=== PATIENT | female | born 1985 | race Caucasian/White ===

== ENCOUNTER → 2018-05-19 11:44 | Outpatient (CLI) | payer MEDICAID, SELFPAY | DX: M79.672 Pain in left foot (principal) | CPT/HCPCS: 73630 ==

== ENCOUNTER → 2019-04-11 17:15 | Outpatient (CLI) | payer MEDICAID, SELFPAY ==
[2019-04-11 13:48] VITALS: BMI 39.3
== END ==
PROVIDERS: Referring Provider Obstetrics & Gynecology; Visit Provider Obstetrics & Gynecology
DX: N89.8 Other specified noninflammatory disorders of vagina (principal)
CPT/HCPCS: 87070; 87205

== ENCOUNTER → 2019-07-11 18:44 | Outpatient (CLI) | payer MEDICAID, SELFPAY ==
[2019-07-11 10:23] VITALS: BMI 39.3
[2019-07-11 15:39] LABS: Chlamydia Trachomatis by PCR Negative (Negative); Neisserai gonorrhoeae by PCR Negative (Negative); Probe Check PASS; Sample Adequacy Control PASS; Specimen Processing Control PASS
--- NOTE | 2019-07-11 18:48 | US_ITS ---
STUDY: ULTRASOUND OF THE FEMALE PELVIS - COMPLETE REASON FOR EXAM: Female, 34 years old. IUD check. LMP: June 25, 2019. TECHNIQUE: Transabdominal and Transvaginal TECHNICAL QUALITY: Adequate. COMPARISON: None. FINDINGS: The uterus is anteverted and is in a midline position. The uterus measures 7.7 x 6.1 x 4.7 cm. Normal uterine cervix. The endometrium measures 13 mm in thickness, and is hyperechoic. There is no demonstrated endometrial mass and trace endometrial fluid.. There is no demonstrated myometrial mass. I.U.D. - The patient does not have an I.U.D. no IUD is seen within the uterus or cervix. The right ovary is visualized. The right ovary measures 2.6 x 1.9 x 1.5 cm. There are multiple follicles of the right ovary without a dominant cyst. There is no visualized right adnexal mass or complex lesion. There is normal arterial and normal venous vascularity. The left ovary is visualized. The left ovary measures 3.0 x 2.0 x 1.3 cm. There are multiple follicles of the left ovary without a dominant cyst. There is no visualized left adnexal mass or complex lesion. There is normal arterial and normal venous vascularity. There is no fluid in the cul-de-sac. The urinary bladder is poorly distended. Polycystic ovary disease: No. US/Transvaginal Non- IMPRESSION: 1. No visualized IUD within the endometrial or cervical canal. 2. Normal-appearing uterus. There is mild prominence to the endometrium with questionable minimal fluid in the endometrial canal. 3. Normal ovaries. Electronically Signed: Boom Mccarthy DO at 20:12 EDT Tel [phone], Service support ,
== END ==
PROVIDERS: Referring Provider Obstetrics & Gynecology; Visit Provider Obstetrics & Gynecology
DX: Z11.3 Encounter for screening for infections with a predominantly sexual mode of transmission (principal); Z30.431 Encounter for routine checking of intrauterine contraceptive device
CPT/HCPCS: 76830; 87070; 87205; 87491; 87591; 93976

== ENCOUNTER → 2019-10-03 16:23 | Outpatient (CLI) | payer MEDICAID, SELFPAY ==
[2019-10-03 11:26] VITALS: BMI 39.3
[2019-10-06 16:10] LABS: HPV APTIMA, High Risk Positive (Negative)
== END ==
PROVIDERS: Referring Provider Obstetrics & Gynecology; Visit Provider Obstetrics & Gynecology
DX: D06.9 Carcinoma in situ of cervix, unspecified (principal)
CPT/HCPCS: 87624; 88175; G0145

== ENCOUNTER → 2020-07-04 | Outpatient (CLI) | payer MEDICAID, SELFPAY ==
[2020-07-04 13:03] VITALS: BMI 34.0
[2020-07-07 03:07] LABS: Chlamydia By Nucleic Acid AMP Negative (Negative)
[2020-07-07 10:04] LABS: Gonococcus By Nucleic Acid AMP Negative (Negative)
== END | disposition home or self-care (01) ==
LOC: LABSPEC 16:47
PROVIDERS: Visit Provider Obstetrics & Gynecology
DX: Z11.3 Encounter for screening for infections with a predominantly sexual mode of transmission (principal); N89.8 Other specified noninflammatory disorders of vagina
CPT/HCPCS: 87070; 87205; 87491; 87591

== ENCOUNTER → 2020-10-30 | Outpatient (CLI) | payer MEDICAID, SELFPAY ==
[2020-10-30 08:12] VITALS: BMI 31.3
[2020-11-01 09:08] LABS: Chlamydia By Nucleic Acid AMP Negative (Negative)
[2020-11-01 10:54] LABS: Gonococcus By Nucleic Acid AMP Negative (Negative)
== END | disposition home or self-care (01) ==
LOC: LABSPEC 12:16
PROVIDERS: Referring Provider Obstetrics & Gynecology; Visit Provider Obstetrics & Gynecology
DX: Z11.3 Encounter for screening for infections with a predominantly sexual mode of transmission (principal)
CPT/HCPCS: 87070; 87205; 87491; 87591

== ENCOUNTER → 2020-11-27 | Outpatient (CLI) | payer MEDICAID, SELFPAY ==
[2020-11-27 14:20] VITALS: BMI 31.8
[2020-12-01 03:07] LABS: Chlamydia By Nucleic Acid AMP Negative (Negative)
[2020-12-01 08:48] LABS: Gonococcus By Nucleic Acid AMP Negative (Negative)
== END | disposition home or self-care (01) ==
PROVIDERS: Referring Provider Obstetrics & Gynecology; Visit Provider Obstetrics & Gynecology
DX: N76.0 Acute vaginitis (principal); Z11.3 Encounter for screening for infections with a predominantly sexual mode of transmission
CPT/HCPCS: 87070; 87205; 87491; 87591

== ENCOUNTER → 2021-03-19 14:58 | Outpatient (CLI) | payer MEDICAID, SELFPAY ==
[2021-03-19 14:24] VITALS: BMI 31.8
[2021-03-19 16:12] LABS: HIV - WCH Non-Reactive (Nonreactive); Syphilis Antibodies Non-reactive
[2021-03-22 03:07] LABS: Chlamydia By Nucleic Acid AMP Negative (Negative)
[2021-03-22 03:07] LABS: HCV Quant. RNA PCR HCV Not Detected IU/mL (.); HEPATITIS B SURFACE AG Negative (Negative); Hepatitis A IgM Antibody Negative (Negative); Hepatitis B Core AB IgM Negative (Negative)
[2021-03-22 11:01] LABS: Gonococcus By Nucleic Acid AMP Negative (Negative)
[2021-03-22 11:02] LABS: Hep C Antibodies <0.1 s/co ratio (0.0-0.9)
== END ==
PROVIDERS: Referring Provider Obstetrics & Gynecology; Visit Provider Obstetrics & Gynecology
DX: Z11.3 Encounter for screening for infections with a predominantly sexual mode of transmission (principal)
CPT/HCPCS: 36415; 80074; 86703; 86780; 87491; 87522; 87591

== ENCOUNTER → 2021-07-03 15:08 | Outpatient (CLI) | payer MEDICAID, SELFPAY ==
[2021-07-03 16:43] LABS: Absolute Lymphocyte Count 2.06 X10^3/uL (0.83-4.51); Absolute Neutrophil Count 4.8 X10^3/uL (2.0-7.7); Basophil# 0.05 X10^3/uL; Basophil% 0.7 % (0-1); Eosinophil# 0.22 X10^3/uL; Eosinophils% 2.9 % (0-5); Hematocrit 43.1 % (37-47); Hemoglobin 14.6 g/dL (12.0-15.0); Lymphocyte # 2.06 X10^3/ul (0.83-4.51); Mean Corp Hgb Conc 33.9 g/dL (32-36); Mean Corpuscular Hgb 32.4 pg (27.0-32.0); Mean Corpuscular Volume 95.6 fL (81-99); Mean Platelet Vol. 10.9 fl (6.2-12.0); Monocyte# 0.44 X10^3/uL; Monocyte% 5.8 % (0-10); NRBC Flagged by Analyzer 0 % (0-5); Neutrophil # 4.84 X10^3/uL (2.7-7.7); Neutrophil % 63.2 % (47-70); Platelet Count 263 K/mm3 (150-450); RBC Distribution Width CV 12.1 % (11.6-14.6); RBC Distribution Width SD 42.5 fl (35.1-43.9); Red Blood Count 4.51 M/mm3 (4.2-5.4); White Blood Count 7.6 K/mm3 (4.4-11.0)
[2021-07-03 17:31] LABS: AST(SGOT) 12 U/L (15-37); Alanine Aminotransfer ALT/SGPT 19 U/L (13-56); Albumin, Serum 3.6 g/dL (3.2-5.0); Alkaline Phosphatase 55 U/L (45-117); Anion Gap 8 (5-15); BUN 11 mg/dL (7-18); BUN/Creat Ratio 16.2 RATIO (10-20); Calcium,Total 8.9 mg/dL (8.5-10.1); Chloride 108 mmol/L (98-107); Creatinine, Serum 0.68 mg/dL (0.55-1.02); EST Glomerular Filtration Rate 105 mL/min (>60); Est Glom Filt Rate - Afr Amer 127 mL/min (>60); Globulin 3.7 g/dL (2.2-4.2); Glucose 99 mg/dL (74-106); Lipase 70 U/L (73-393); Potassium 3.9 mmol/L (3.5-5.1); Protein, Total 7.3 g/dL (6.4-8.2); Sodium Level 141 mmol/L (136-145); T4 Total, Thyroxin 7.2 ug/dL (4.8-13.9); Thyroid Stim Hormone (TSH) 0.95 uIU/mL (0.358-3.74)
[2021-07-06 06:08] LABS: Endomysial Antibody IgA Negative (Negative); Immunoglobulin A 193 mg/dL (87-352)
[2021-07-06 08:05] LABS: Thyroid Peroxidase AB < 8 IU/mL (0-34); t-Transglutaminase IgA <2 U/mL (0-3)
== END ==
DX: R11.2 Nausea with vomiting, unspecified (principal)
CPT/HCPCS: 36415; 80053; 82784; 83516; 83690; 84436; 84443; 85025; 86255; 86376; 86677

== ENCOUNTER → 2021-07-05 07:41 | Outpatient (CLI) | payer MEDICAID, SELFPAY ==
--- NOTE | 2021-07-05 07:45 | US_ITS ---
STUDY: ABDOMINAL ULTRASOUND REASON FOR EXAM: Female, 36 years old. General ABD PAIN x 2 years TECHNIQUE: Transabdominal ultrasound was performed with real-time and static patrick scale imaging. TECHNICAL QUALITY: Adequate. COMPARISON: None. FINDINGS: Liver: The liver measures 17 cm. There is normal echogenicity of the liver. The bile ducts are within normal limits. There is hepatic color flow. The direction of portal flow is hepatopetal. There is no demonstrated mass lesion. Gallbladder: Normal distended gallbladder. The gallbladder wall measures 2.1 mm. There is a negative sonographic Cutler''s sign. There is no pericholecystic fluid. There are no gallstones. Common Bile Duct (C.B.D.): The common bile duct measures 4.3 mm. Pancreas: Normal size of the head, body and tail of the pancreas. There is normal echogenicity of the pancreas. There is no demonstrated pancreatic mass or cyst. Spleen: Normal size of the spleen. The spleen measures 11.7 cm x 4.8 cm x 4.1 cm. Right Kidney: Normal size of the right kidney. The right kidney measures 12.6 cm x 5.4 cm x 4.9 cm. Normal renal cortex. The right cortex measures 1.3 cm. There is no demonstrated renal mass or cyst. There is no right hydronephrosis. Left Kidney: Normal size of the left kidney. The left kidney measures 12.7 cm x 5.5 cm x 5.7 cm. Normal renal cortex. The left cortex measures 1.5 cm. There is no demonstrated renal mass or cyst. There is no left hydronephrosis. Aorta: Unremarkable. I.V.C.: The IVC is patent. There is no ascites. US/Abdomen Complete IMPRESSION: Normal abdominal ultrasound examination. Electronically Signed: Blanco Brown MD at 15:10 EDT , Service support ,
--- NOTE | 2021-07-05 07:46 | US_ITS ---
STUDY: ULTRASOUND OF THE FEMALE PELVIS - COMPLETE REASON FOR EXAM: Female, 36 years old. ABD PAIN LMP: 06/30/2021 TECHNIQUE: Transabdominal TECHNICAL QUALITY: Adequate. COMPARISON: 07/11/2019 FINDINGS: The uterus is anteverted and is in a midline position. The uterus measures 8.8 x 6.1 x 4.3 cm. Normal uterine cervix. The endometrium measures 3 mm in thickness, and is hyperechoic. There is no demonstrated endometrial mass. There is no demonstrated myometrial mass. I.U.D. - The patient does have an I.U.D. The right ovary is visualized. The right ovary measures 2.3 x 2.5 x 1.4 cm. There is no right ovarian cyst or ovarian mass. There is no visualized right adnexal mass or complex lesion. There is normal arterial and normal venous vascularity. The left ovary is visualized. The left ovary measures 3.6 x 2.5 x 1.4 cm. There is no left ovarian cyst or ovarian mass. There is no visualized left adnexal mass or complex lesion. There is normal arterial and normal venous vascularity. There is no fluid in the cul-de-sac. The pre void volume of the bladder was 329 ml. The post void volume of the bladder was ml. Polycystic ovary disease: No. US/Pelvic (Non ) IMPRESSION: Normal female pelvis. Electronically Signed: Peyman Castillo MD at 10:58 EDT Tel , Service support ,
[2021-07-08 22:07] LABS: Chlamydia By Nucleic Acid AMP Negative (Negative)
[2021-07-08 22:27] LABS: Gonococcus By Nucleic Acid AMP Negative (Negative)
== END ==
PROVIDERS: Obstetrics & Gynecology
DX: R10.84 Generalized abdominal pain (principal); R30.0 Dysuria; N89.8 Other specified noninflammatory disorders of vagina
CPT/HCPCS: 76700; 76856; 87070; 87077; 87086; 87088; 87186; 87205; 87491; 87591; 93976

== ENCOUNTER 2021-10-17 11:01 | Outpatient (CLI) | payer MEDICAID, SELFPAY ==
[2021-10-17 12:22] LABS: Absolute Lymphocyte Count 2.19 X10^3/uL (0.83-4.51); Absolute Neutrophil Count 4.2 X10^3/uL (2.0-7.7); Basophil# 0.05 X10^3/uL; Basophil% 0.7 % (0-1); Eosinophil# 0.19 X10^3/uL; Eosinophils% 2.7 % (0-5); Hematocrit 43.8 % (37-47); Hemoglobin 15.2 g/dL (12.0-15.0); Lymphocyte # 2.19 X10^3/ul (0.83-4.51); Mean Corp Hgb Conc 34.7 g/dL (32-36); Mean Corpuscular Volume 92.2 fL (81-99); Mean Platelet Vol. 10.8 fl (6.2-12.0); Monocyte% 5.7 % (0-10); NRBC Flagged by Analyzer 0 % (0-5); Neutrophil # 4.21 X10^3/uL (2.7-7.7); Neutrophil % 59.6 % (47-70); Platelet Count 244 K/mm3 (150-450); Red Blood Count 4.75 M/mm3 (4.2-5.4); White Blood Count 7.1 K/mm3 (4.4-11.0)
[2021-10-17 13:33] LABS: AST(SGOT) 9 U/L (15-37); Alanine Aminotransfer ALT/SGPT 18 U/L (13-56); Albumin, Serum 3.8 g/dL (3.2-5.0); Alkaline Phosphatase 58 U/L (45-117); Anion Gap 6 (5-15); BUN 11 mg/dL (7-18); BUN/Creat Ratio 17.4 RATIO (10-20); Calcium,Total 8.8 mg/dL (8.5-10.1); Chloride 109 mmol/L (98-107); Cholesterol 155 mg/dL (200); Creatinine, Serum 0.63 mg/dL (0.55-1.02); EST Glomerular Filtration Rate 113 mL/min (>60); Est Glom Filt Rate - Afr Amer 137 mL/min (>60); Globulin 3.8 g/dL (2.2-4.2); Glucose 98 mg/dL (74-106); High Density Lipoprotein 55 mg/dL; Potassium 3.8 mmol/L (3.5-5.1); Protein, Total 7.6 g/dL (6.4-8.2); Sodium Level 138 mmol/L (136-145); Thyroid Stim Hormone (TSH) 1.19 uIU/mL (0.358-3.74); Triglycerides 83 mg/dL; Very Low Density Lipoprotein 17 mg/dL (5-40)
[2021-10-17 14:09] LABS: Hemoglobin A1c 4.8 % (3.8-5.6)
[2021-10-18 17:52] LABS: H. Pylori Antibody (IgG) 0.49 (0.00-0.79)
== END 2021-10-17 23:59 | disposition short-term general hospital (02) ==
PROVIDERS: Visit Provider Nurse Practitioner Adult Health
DX: Z13.1 Encounter for screening for diabetes mellitus (principal); F31.81 Bipolar II disorder; K21.9 Gastro-esophageal reflux disease without esophagitis
CPT/HCPCS: 36415; 80053; 80061; 83036; 84443; 85025; 86677

== ENCOUNTER 2021-10-21 12:21 | Outpatient (CLI) | payer MEDICAID, SELFPAY ==
[2021-10-23 00:06] LABS: Chlamydia By Nucleic Acid AMP Negative (Negative)
[2021-10-23 13:30] LABS: Gonococcus By Nucleic Acid AMP Negative (Negative)
== END 2021-10-21 23:59 | disposition short-term general hospital (02) ==
LOC: LABSPEC 12:22
PROVIDERS: Referring Provider Nurse Practitioner Women's Health; Visit Provider Nurse Practitioner Women's Health
DX: N89.8 Other specified noninflammatory disorders of vagina (principal)
CPT/HCPCS: 87070; 87086; 87088; 87205; 87491; 87591

== ENCOUNTER → 2022-03-07 | Outpatient (CLI) | payer MEDICAID, SELFPAY | END | disposition home or self-care (01) | LOC: LABSPEC 03-10 08:14 | PROVIDERS: Visit Provider Obstetrics & Gynecology | DX: Z12.4 Encounter for screening for malignant neoplasm of cervix (principal) | CPT/HCPCS: 87624; 88175; G0145 ==

== ENCOUNTER → 2022-04-10 | Outpatient (CLI) | payer MEDICAID, SELFPAY ==
--- NOTE | 2022-04-10 | IMM_PTH ---
PATIENT: FANTA HAM LOC: [facility] U#:[id number] AGE/SX: 36/F ROOM: RE04/10/[address]: Dr. Marxia Levine MD : 1985 BED: DIS: 04/10/2022 SPEC #: [id number] RECD: 04/14/22 12:25 STATUS: BANDAR REQ #: [id number] ANDRES: 04/10/22 00:[address]: Marixa Levine DEPT: IMMUNOHISTOCHEMISTRY RECD BY: Yuki Thomas ENTERED: 04/14/22 12:26 SP TYPE: IMMUNO OTHR DR: [facility] Tissues: Uterine cervix, NOS Procedures: p16 (initial) KI-67 (add) PHYSICIAN & INSTITUTION [place] [id number] SPECIMEN INFORMATION: Tissue Source: Cervix, 11 o?clock Clinical Info: LGSIL Specimen Number: [id number] CPT code: 69305, 51299 METHODOLOGY: Deparaffinized sections of prefer/formalin-fixed tissue or PAP/DQ stained slides are incubated with monoclonal/polyclonal antibodies/oligonucleotide probes. Localization is made via biotin free immunoperoxidase method. Appropriate controls are performed and reacted as expected. Results on target cell population are indicated in the following table: RESULTS: ANTIBODY / CLONE RESULT P16 (E6H4) negative Ki-67 (30-9) positive, very low These tests were developed and their performance characteristics determined by [facility]. They may not have been cleared or approved by the [place]. Food and Drug Administration. The FDA has determined that such clearance or approval is not necessary. The above immunohistochemical/dualISH markers are ordered and reviewed by the Pathologist. INTERPRETATION: Cervix, 11 o?clock, biopsy: Negative for dysplasia. HAILEE:addi 04/15/2022
--- NOTE | 2022-04-10 | CER_PTH ---
PATIENT: FANTA AHM LOC: [facility] U#:[id number] AGE/SX: 36/F ROOM: RE04/10/[address]: Dr. Marixa Levine MD : 1985 BED: DIS: 04/10/2022 SPEC #: [id number] RECD: 04/10/22 15:26 STATUS: BANDAR JAMARI #: [id number] ANDRES: 04/10/22 00:[address]: Marixa Levine DEPT: SURGICAL PATHOLOGY RECD BY: Lizzette Lujan ENTERED: 04/11/22 08:05 SP TYPE: CERV OTHR DR: [facility] Tissues: Uterine cervix, NOS Procedures: Surgery Specimen Level IV HEADER OPERATION: Colposcopy PRE-OP DIAGNOSIS: LGSIL TISSUE SUBMITTED: Cervix 11 o?clock MICROSCOPIC DIAGNOSIS Cervix, 11 o?clock, biopsy: A fragment of ectocervical mucosa, negative for dysplasia. Focal hyperkeratosis, parakeratosis and mild chronic inflammation. See comment. HAILEE:addi 04/14/2022 COMMENT Immunohistochemistry ([id number]) for surrogate HPV marker (p16) supports the above diagnosis. Clinical correlation and appropriate follow-up are necessary. MICROSCOPIC DESCRIPTION Slides are reviewed. GROSS DESCRIPTION Received in fixative is one container labeled with the patient's name and designated 11 o'clock. The specimen consists of one irregular fragment of light hermosillo soft tissue that measures 0.3 x 0.3 x 0.1 cm. The specimen is totally submitted in one cassette. / AM:addi 04/11/2022 TC:5 CPT: 22982
[2022-04-14 01:06] LABS: Chlamydia By Nucleic Acid AMP Negative (Negative)
[2022-04-14 09:13] LABS: Gonococcus By Nucleic Acid AMP Negative (Negative)
== END | disposition home or self-care (01) ==
LOC: LABSPEC 04-11 09:46
PROVIDERS: Visit Provider Obstetrics & Gynecology
DX: N88.0 Leukoplakia of cervix uteri (principal); R87.612 Low grade squamous intraepithelial lesion on cytologic smear of cervix (LGSIL)
CPT/HCPCS: 87070; 87205; 87491; 87591; 88305; 88341; 88342

== ENCOUNTER → 2022-05-12 | Outpatient (CLI) | payer MEDICAID, SELFPAY | END | disposition home or self-care (01) | LOC: LABSPEC 16:11 | PROVIDERS: Referring Provider Nurse Practitioner Women's Health; Visit Provider Nurse Practitioner Women's Health | DX: N76.0 Acute vaginitis (principal) | CPT/HCPCS: 87070; 87205 ==

== ENCOUNTER → 2022-06-30 | Outpatient (CLI) | payer MEDICAID, SELFPAY | END | disposition home or self-care (01) | LOC: LABSPEC 12:04 | PROVIDERS: Visit Provider Obstetrics & Gynecology | DX: N89.8 Other specified noninflammatory disorders of vagina (principal) | CPT/HCPCS: 87255 ==

== ENCOUNTER → 2022-06-30 | Outpatient (CLI) | payer MEDICAID, SELFPAY ==
[2022-06-30 14:35] LABS: HIV - WCH Non-Reactive (Nonreactive)
== END | disposition home or self-care (01) ==
LOC: PAVLAB 12:48
PROVIDERS: Referring Provider Obstetrics & Gynecology; Visit Provider Obstetrics & Gynecology
DX: Z20.2 Contact with and (suspected) exposure to infections with a predominantly sexual mode of transmission (principal); R10.2 Pelvic and perineal pain
CPT/HCPCS: 87529; 36415; 86695; 86696; 86703; 87255; 87522

== ENCOUNTER → 2023-04-28 | Outpatient (CLI) | payer MEDICAID, SELFPAY ==
[2023-04-28 12:09] LABS: Absolute Lymphocyte Count 2.49 X10^3/uL (0.83-4.51); Absolute Neutrophil Count 3.4 X10^3/uL (2.0-7.7); Basophil# 0.07 X10^3/uL; Hematocrit 44.1 % (37-47); Hemoglobin 15.4 g/dL (12.0-15.0); Lymphocyte # 2.49 X10^3/ul (0.83-4.51); Lymphocyte % 37.3 % (19-41); Mean Corp Hgb Conc 34.9 g/dL (32-36); Mean Corpuscular Volume 91.7 fL (81-99); Mean Platelet Vol. 10.2 fl (6.2-12.0); Monocyte# 0.52 X10^3/uL; Monocyte% 7.8 % (0-10); NRBC Flagged by Analyzer 0 % (0-5); Neutrophil # 3.36 X10^3/uL (2.7-7.7); Neutrophil % 50.5 % (47-70); Platelet Count 241 K/mm3 (150-450); RBC Distribution Width CV 12.4 % (11.6-14.6); RBC Distribution Width SD 41.6 fl (35.1-43.9); Red Blood Count 4.81 M/mm3 (4.2-5.4); White Blood Count 6.7 K/mm3 (4.4-11.0)
[2023-04-28 13:02] LABS: Insulin 26.3 mU/L (2.6-37.6)
[2023-04-28 13:06] LABS: AST(SGOT) 11 U/L (15-37); Alanine Aminotransfer ALT/SGPT 29 U/L (13-56); Albumin, Serum 3.8 g/dL (3.2-5.0); Alkaline Phosphatase 56 U/L (45-117); Anion Gap 4 (5-15); BUN 12 mg/dL (7-18); BUN/Creat Ratio 15.8 RATIO (10-20); Calcium,Total 9.2 mg/dL (8.5-10.1); Chloride 108 mmol/L (98-107); Creatinine, Serum 0.76 mg/dL (0.55-1.02); EST Glomerular Filtration Rate 91 mL/min (>60); Est Glom Filt Rate - Afr Amer 110 mL/min (>60); Globulin 3.7 g/dL (2.2-4.2); Glucose 110 mg/dL (74-106); Magnesium 2.2 mg/dL (1.6-2.6); Potassium 4.1 mmol/L (3.5-5.1); Protein, Total 7.5 g/dL (6.4-8.2); Sodium Level 137 mmol/L (136-145); Thyroid Stim Hormone (TSH) 1.25 uIU/mL (0.358-3.74)
[2023-04-28 13:51] LABS: Hemoglobin A1c 4.9 % (3.8-5.6)
== END | disposition home or self-care (01) ==
LOC: LAB 11:49
DX: R55 Syncope and collapse (principal)
CPT/HCPCS: 36415; 80053; 83036; 83525; 83735; 84443; 85025

== ENCOUNTER → 2023-05-14 | Outpatient (CLI) | payer MEDICAID, SELFPAY ==
[2023-05-21 17:07] LABS: HPV APTIMA, High Risk Negative (Negative)
== END | disposition home or self-care (01) ==
LOC: LABSPEC 15:38
PROVIDERS: Referring Provider Obstetrics & Gynecology; Visit Provider Obstetrics & Gynecology
DX: N76.0 Acute vaginitis (principal); Z12.4 Encounter for screening for malignant neoplasm of cervix
CPT/HCPCS: 87070; 87186; 87205; 87624; 88175; G0145

== ENCOUNTER → 2024-05-20 | Outpatient (CLI) | payer MEDICAID, SELFPAY ==
[2024-05-24 21:07] LABS: Chlamydia By Nucleic Acid AMP Negative (Negative); Gonococcus By Nucleic Acid AMP Negative (Negative)
[2024-05-26 10:09] LABS: HPV APTIMA, High Risk Negative (Negative)
== END | disposition home or self-care (01) ==
LOC: LABSPEC 11:58
PROVIDERS: Referring Provider Obstetrics & Gynecology; Visit Provider Obstetrics & Gynecology
DX: Z11.3 Encounter for screening for infections with a predominantly sexual mode of transmission (principal); Z12.4 Encounter for screening for malignant neoplasm of cervix; R10.2 Pelvic and perineal pain
CPT/HCPCS: 87070; 87205; 87491; 87591; 87624; 88175; G0145

== ENCOUNTER → 2024-07-20 | Outpatient (CLI) | payer MEDICAID, SELFPAY ==
--- OUTSIDE RECORDS SUMMARY | 2024-07-20 13:11 | XMS RPT_ITS | CCD ---
Author Organization [facility] Care Team Providers Care Shade Matcher Name Role Phone Abner JORDAN, Marixa Croft Unavailable [phone] GARY Alberto RN, Deepika Frederick Unavailable Unavailjosiane Alberto RN RN, Deepika Frederick Unavailable UnavailHAYLEE Arroyo Unavailable Unavailable Tremaine Moya Unavailable Unavailable Tremaine Moya Unavailable Unavailable Maylin Burton Unavailable Unavailable Marixa Levine MD Unavailable [phone] GARY Alberto RN, Deepika Frederick Unavailable UnavailCIERA Miranda Primary Care Physician Ciera Novak Primary Care Provider CIERA MURDOCK Primary Care Unavail able DR JULISSA EPREIRA DO Attending UnavailCIERA Pond Primary Care Unavailable KEITH FAGAN Referring Unavailable CIERA NOVAK Primary Care Unavailable CIERA NOVAK Primary Care Unavailable CIERA NOVAK Primary Care Unavailable BRITTNEY MEJÍA Referring Unavailable CIERA NOVAK Primary Care Unavailable BRITTNEY MEJÍA Attending Unavailable KEITH FAGAN Referring Unavailable CIERA NOVAK Primary Care Unavailable BRITTNEY MEJÍA Referring Unavailable Ciera Novak Primary Care Provider Allergies Allergy Classification Reported Allergen(s) Allergy Type Date of Onset Reaction(s) Facility (6 sources) Acetaminophen / HYDROcodone; Translations: [HYDROCODONE-ACET AMINOPHEN] Drug Allergy 3 GI Upset [facility] Work Phone: (6 sources) Acetaminophen / oxyCODONE; Translations: [OXYCODONE-ACETAM INOPHEN] Drug Allergy 3 Shortness of Breath [facility] Work Phone: (6 sources) Clindamycin; Translations: [CLINDAMYCIN] Drug Allergy [address] [facility] Work Phone: (6 sources) Lactose; Translations: [LACTOSE] Drug Allergy [address] [facility] (6 sources) tioconazole; Translations: [TIOCONAZOLE] Drug Allergy [address] [facility] Work Phone: (6 sources) Soap; Translations: [SOAP] Propensity to adverse reactions [address] [facility] Work Phone: (5 sources) laundry detergent [Other] Propensity to adverse reactions [address] [facility] (1 source) OTHER; Translations: [OTHER] Propensity to adverse reactions (disorder) 5 [facility] Medications Current Medications Medication Drug Class(es) Dates Sig (Normalized) Sig (Original) acetaminophen 500 mg oral tablet (5 sources) Start: 01-16-2023 End: 01-31-2023 take 500-1000 mg by mouth every six hours as needed acetaminophen (TYLENOL) 500 mg tablet Take 1-2 tablets by mouth every 6 hours as needed for pain for up to 15 days. 60 tablet 0 01/16/2023 01/31/2023 Active Start: 05-24-2019 End: 01-16-2023 take 500-1000 mg by mouth three times daily acetaminophen (TYLENOL) 500 mg tablet Take 500-1,000 mg by mouth three times daily. 2 05/24/2019 01/16/2023 Discontinued Comment on above: Take 500-1,000 mg by mouth three times daily. Take 1-2 tablets by mouth every 6 hours as needed for pain for up to 15 days. [id number] 200 actuat albuterol 0.09 mg/actuat metered dose inhaler (5 sources) beta2-Adrenergic Agonist Start: 6 take 2 puff(s) by inhalation four times daily as needed for wheezing albuterol HFA (PROVENTIL HFA, VENTOLIN HFA) 90 mcg/actuation inhaler Indications: Asthma, moderate persistent, well-controlled Inhale 2 Puffs as instructed four times daily as needed. FOR WHEEZING AND SHORTNESS OF BREATH. 1 Inhaler 2 08/26/2016 Active Comment on above: Inhale 2 Puffs as in structed four times daily as needed. FOR WHEEZING AND SHORTNESS OF BREATH. docusate sodium 100 mg oral capsule (1 source) Start: 9 Colace 100 mg oral capsule Dose : 100 mg = 1 cap(s), Oral, BID, PRN as needed for constipation, # 20 cap(s), 0 Refill(s) Start Date: 04/18/19 Status: Ordered herbal drugs (MARJORAM ORAL) (5 sources) herbal drugs (MARJORAM ORAL) Take by mouth. Active herbal drugs (MA RJORAM ORAL) Take by mouth. 0 Active Comment on above: Take by mouth. ibuprofen 600 mg oral tablet (2 sources) Nonsteroidal Anti-inflammatory Drug Start: 01-16-2023 End: 01-31-2023 take 1 tablet by mouth every eight hours as needed ibuprofen (MOTRIN) 600 mg tablet Take 1 tablet by mouth every 8 hours as needed for pain for up to 15 days. 45 tablet 0 01/16/2023 01/31/2023 Active Comment on above: Take 1 tablet by kristy th every 8 hours as needed for pain for up to 15 days. Completed/Discontinued Medications Medication Drug Class(es) Dates Sig (Normalized) Sig (Original) acetaminophen 325 mg / HYDROcodone bitartrate 5 mg oral tablet (1 source) Opioid Agonist Start: 04-18-2019 End: 04-23-2019 take 1 tablet by mouth every four hours as needed for pain [place] 325- 5 mg oral tablet Dose = 1 tab(s), Oral, q4hr, PRN as needed for pain, # 24 tab(s), 0 Refill(s), Tail bone pain Start Date: 04/18/19 Stop Date: 04/23/19 Status: Ordered 24 hr amphetamine aspartate 2.5 mg / amphetamine sulfate 2.5 mg / dextroamphetamine saccharate 2.5 mg / dextroamphetamine sulfate 2.5 mg extended release oral capsule (6 sources) Central Nervous System Stimulant Start: 04-22-2017 take 1 capsule by mouth in the evening ADDERALL XR 10 MG [id number] Take one capsule by mouth at three pm AMPHETAMINE-DEXTR OAMPHETAMINE [id number] Marixa Levine MD Start: 04-22-2017 take 1 tablet by kristy th once daily ADDERALL XR 30 MG [id number] One tablet b y mouth daily AMPHETAMINE-DEXTROAMPHETAMINE [id number] Marixa Levine MD AMPHETAMINE-DEXTROAMPHETAMIN E (14 sources) Central Nervous System Stimulant Start: 04-22-2017 take 1 tablet by mouth once daily ADDERALL XR 30 MG [id number] One tablet by mouth daily AMPHETAMINE-DEXTROAMPHETAMINE [id number] Marixa Levine MD Start: 04-22-2017 take 1 capsule by mo uth in the evening ADDERALL XR 10 MG [id number] Take one cap jabari by mouth at three pm AMPHETAMINE-DEXTROAMPHETAMINE [id number] Marixa Levine MD Start: 04-22-2017 take 1 capsule by mo uth in the evening ADDERALL XR 10 MG [id number] Take one cap jabari by mouth at three pm AMPHETAMINE-DEXTROAMPHETAMINE [id number] Marixa Levine MD Start: 04-22-2017 take 1 tablet by kristy th once daily ADDERALL XR 30 MG [id number] One tablet b y mouth daily AMPHETAMINE-DEXTROAMPHETAMINE [id number] Marixa Levine MD Calcium Carbonate (1 source) End: 01-16-2023 calcium carbonate (CALCIUM 500 ORAL) Take by mouth. 0 01/16/2023 Discontinued Comment on above: Take by mouth. cetirizine hydrochloride 10 mg oral tablet (1 source) Histamine-1 Receptor Antagonist Start: 10-31-2015 End: 01-16-2023 take 1 tablet by mouth twice daily cetirizine (ZYRTEC) 10 mg tablet one po bid for hives 60 tablet 12 10/31/2015 01/16/2023 Discontinued Comment on above: one po bid for hives ergocalciferol, vitamin D2, (VITAMIN D2 ORAL) (1 source) End: 01-16-2023 ergocalciferol, vitamin D2, (VITAMIN D2 ORAL) Take by mouth. 0 01/16/2023 Discontinued Comment on above: Take by mouth. risperiDONE 1 mg oral tablet (1 source) Atypical Antipsychotic Start: 10-26-2019 End: 01-16-2023 take 1 tablet by mouth twice daily risperiDONE (RISPERDAL) 1 mg tablet Indications: Bipolar affective disorder, currently depressed, moderate (HCC) , PTSD (post-traumatic stress disorder) Take 1 tablet by mouth twice daily. 60 tablet 1 10/26/2019 01/16/2023 Discontinued Comment on above: Take 1 tablet by kristy th twice daily. sertraline 100 mg oral tablet (1 source) Serotonin Reuptake Inhibitor Start: 10-26-2019 End: 01-16-2023 take 1.5 tablets by mouth once daily sertraline (ZOLOFT) 100 mg tablet Indications: Bipolar affective disorder, currently depressed, moderate (HCC) , PTSD (post-traumatic stress disorder) Take 1.5 tablets by mouth once daily. 45 tablet 2 10/26/2019 01/16/2023 Discontinued Comment on above: Take 1.5 tablets by mouth once daily. SULFAMETHOXAZOLE-TR IMETHOPRIM (10 sources) Dihydrofolate Reductase Inhibitor Antibacterial, Sulfonamide Antimicrobial Start: 04-22-2017 take 1 tablet by mouth twice daily BACTRIM DS 800-160 MG TABS One tablet by mouth twice daily x 3 days SULFAMETHOXAZOLE-T RIMETHOPRIM [id number] Marixa Levine MD Start: 04-22-2017 take 1 tablet by kristy th twice daily BACTRIM DS 800-160 MG TABS One tablet by mouth twice daily x 3 days SULFAMETHOXAZOLE-TRIMETHOPRIM [id number] Marixa Levine MD valACYclovir 500 mg oral tablet (10 sources) Herpesvirus Nucleoside Analog DNA Polymerase Inhibitor, Herpes Simplex Virus Nucleoside Analog DNA Polymerase Inhibitor, Herpes Zoster Virus Nucleoside Analog DNA Polymerase Inhibitor Start: 04-22-2017 take 1 tablet by mouth twice daily VALTREX 500 MG TABS One tablet by mouth twice daily x 3 days VALACYCLOVIR HCL [id number] Marixa Levine MD Problems Active Problems Problem Classification Problem Date Documented Date Episodic/Chronic Abdominal pain (1 source) Abdominal pain Onset: 09-19-2023 Episodic Anxiety disorders (5 sources) Mixed anxiety and depressive disorder; Translations: [Other specified anxiety disorders] Onset: 09-26-2010 09-26-2010 Chronic Asthma (6 sources) Asthma; Translations: [Mild intermittent asthma] Onset: 09-28-2009 08-21-2022 Chronic Attention-deficit, conduct, and disruptive behavior disorders (5 sources) Attention deficit hyperactivity disorder; Translations: [Attention-deficit hyperactivity disorder, unspecified type] 01-19-2013 Chronic Cancer of other female genital organs (5 sources) Vulval intraepithelial neoplasia grade 3; 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] Onset: 08-20-2011 08-20-2011 Chronic Heart valve disorders (1 source) Heart murmur 08-21-2022 Episodic Mood disorders (6 sources) Bipolar II disorder; Translations: [Bipolar II disorder] Onset: 01-21-2008 Resolved: 10-28-2010 07-27-2013 Chronic Nonspecific chest pain (2 sources) Chest pain; Translations: [Chest pain, unspecified] Onset: 08-21-2022 Episodic Other connective tissue disease (4 sources) Pain in right foot; Translations: [Pain in right foot] Episodic Unclassified (7 sources) Screening for malignant neoplasm of cervix ; Translations: [Encounter for screening for malignant neoplasm of cervix] Onset: 04-22-2017 04-22-2017 Unclassified (7 sources) Gynecologic examination ; Translations: [Encounter for gynecological examination (general) (routine) with abnormal findings] Onset: 04-22-2017 04-22-2017 Unclassified (3 sources) Procedure carried out on subject; Translations: [Encounter for screening for human papillomavirus (HPV)] Onset: 04-22-2017 04-22-2017 Past or Other Problems Problem Classification Problem Date Documented Date Episodic/Chronic Contraceptive and procreative management (5 sources) IUD contraception; Translations: [Encounter for insertion of intrauterine contraceptive device] Onset: 12-06-2010 12-06-2010 Episodic Fracture of lower limb (1 source) Fracture of unspecified metatarsal bone(s), right foot, initial encounter for closed fracture; Translations: [Closed nondisplaced fracture of metatarsal bone of right foot, unspecified metatarsal, initial encounter] Onset: 02-05-2023 Episodic Fracture of upper limb (2 sources) Closed fracture of shaft of metacarpal bone; Translations: [Nondisplaced fracture of shaft of fifth metacarpal bone, right hand, initial encounter for closed fracture] Onset: 02-05-2023 Episodic Genitourinary symptoms and ill-defined conditions (10 sources) Abnormal urine; Translations: [Other abnormal findings in urine] Onset: 04-22-2017 04-22-2017 Episodic Immunizations and screening for infectious disease (7 sources) Encounter for screening for human papillomavirus (HPV); Translations: [Encounter for screening for human papillomavirus (HPV)] Onset: 04-22-2017 04-22-2017 Episodic Other complications of (1 source) High risk ; Translations: [Supervision of high risk , unspecified, unspecified trimester] Onset: 08-05-2010 Resolved: 12-06-2010 12-06-2010 Episodic Other complications of (1 source) with isoimmunization; Translations: [Maternal care for other rhesus isoimmunization, unspecified trimester, not applicable or unspecified] Onset: 08-05-2010 Resolved: 12-06-2010 12-06-2010 Episodic Other connective tissue disease (2 sources) Pain in right foot; Translations: [Pain in right foot] Onset: 01-16-2023 Episodic Other female genital disorders (5 sources) Cervical intraepithelial neoplasia grade 1; Translations: [Mild cervical dysplasia] Onset: 02-10-2010 02-10-2010 Episodic Other and delivery including normal (1 source) Normal ; Translations: [Encounter for supervision of other normal , unspecified trimester] Onset: 01-12-2008 Resolved: 06-28-2008 06-28-2008 Episodic Viral infection (5 sources) Verruca vulgaris; Translations: [Other viral warts] Onset: 06-28-2008 06-28-2008 Episodic Results Test Name Value Interpretation Reference Range Facility Bacteria Ur Culton 4 Bacteria identified Cx Nom (U) ORGANISM ID: 1 10,000 -<50,000 CFU/ml Normal urogenital bobo Normal [facility] Comment on above: Performed By: #### 6 30-4 ####[facility] LABCLIA [id number] [address] [place] URINALYSIS, DIPSTICK ONLYon 10-26-2023 Bilirubin Ql (U) Negative Normal Negative [facility] Comment on above: Order Comment: Speci men Type: URINE SPECIMENOrdering Facility: [facility] Address: [address] [place] [address] Performed By: #### U A ####[facility] LABCLIA [id number] [place] [address] [place] Clarity (Unsp spec) Clear Normal Clear [facility] Comment on above: Order Comment: Speci men Type: URINE SPECIMENOrdering Facility: [facility] Address: [address] [place] [address] Performed By: #### U A ####[facility] LABCLIA [id number] [place] [address] [place] Color (U) Yellow Normal Yellow [facility] Comment on above: Order Comment: Speci men Type: URINE SPECIMENOrdering Facility: [facility] Address: [address] [place] [address] Performed By: #### U A ####[facility] LABCLIA [id number] [place] [address] [place] Glucose Test strip (U) [Mass/Vol] Negative Normal Negative [facility] Comment on above: Order Comment: Speci men Type: URINE SPECIMENOrdering Facility: [facility] Address: [address] [place] [address] Performed By: #### U A ####[facility] LABCLIA [id number] [place] [address] [place] Hemoglobin Ql (U) 2+ Abnormal Negative [facility] Comment on above: Order Comment: Speci men Type: URINE SPECIMENOrdering Facility: [facility] Address: [address] [place] [address] Performed By: #### U A ####[facility] LABCLIA [id number] [place] [address] [place] Ketones Ql (U) Negative Normal Negative [facility] Comment on above: Order Comment: Speci men Type: URINE SPECIMENOrdering Facility: [facility] Address: [address] [place] [address], [place] [address] Performed By: #### U A ####[facility] LABCLIA [id number] [place] [address] [place] Leukocyte esterase Test strip Ql (U) Trace Abnormal Negative [facility] Comment on above: Order Comment: Speci men Type: URINE SPECIMENOrdering Facility: [facility] Address: [address] [place] [address] Performed By: #### U A ####[facility] LABCLIA [id number] [place] [address] [place] Nitrite Ql (U) Negative Normal Negative [facility] Comment on above: Order Comment: Speci men Type: URINE SPECIMENOrdering Facility: [facility] Address: [address] [place] [address] Performed By: #### U A ####[facility] LABCLIA [id number] [place] [address] [place] pH (U) 6.0 [pH] Normal <8.5 [facility] Comment on above: Order Comment: Speci men Type: URINE SPECIMENOrdering Facility: [facility] Address: [address] [place] [address] Performed By: #### U A ####[facility] LABCLIA [id number] [place] [address] [place] Protein (U) [Mass/Vol] Negative Normal Negative [facility] Comment on above: Order Comment: Speci men Type: URINE SPECIMENOrdering Facility: [facility] Address: [address] [place] [address] Performed By: #### U A ####[facility] LABCLIA [id number] [place] [address] [place] Specific gravity (U) [Rel density] 1.015 Normal 1.005-1.030 [facility] Comment on above: Order Comment: Speci men Type: URINE SPECIMENOrdering Facility: [facility] Address: [address] [place] [address] Performed By: #### U A ####[facility] LABCLIA [id number] [place] [address] [place] Urobilinogen Ql (U) 1.0 EU/dL Normal 0.2-1.0 EU/dL [facility] Comment on above: Order Comment: Speci men Type: URINE SPECIMENOrdering Facility: [facility] Address: [address] [place] [address] Performed By: #### U A ####[facility] LABCLIA [id number] [place] [address] [place] Bacteria Ur Culton Bacteria identified Cx Nom (U) ORGANISM ID: 1 10,000 -<50,000 CFU/ml Normal urogenital bobo Normal [facility] Comment on above: Performed By: #### 6 30-4 ####[facility] LABCLIA [id number] [place] [address] [place] URINALYSIS, DIPSTICK ONLYon 09-30-2023 Bilirubin Ql (U) Negative Normal Negative [facility] Comment on above: Order Comment: Speci men Type: URINE SPECIMEN [facility] Address: [address] [place] [address] Performed By: #### U A #### [facility] CLIA [id number] [address] [place] Order Comment: Speci men Type: URINE SPECIMENOrdering Facility: [facility] Address: [address] [place] [address] Performed By: #### U A ####[facility] LABCLIA [id number] [place] [address] [place] Clarity (Unsp spec) Clear Normal Clear [facility] Comment on above: Order Comment: Speci men Type: URINE SPECIMEN [facility] Address: [address] [place] [address] Performed By: #### U A #### [facility] CLIA [id number] [address] [place] Order Comment: Speci men Type: URINE SPECIMENOrdering Facility: [facility] Address: [address] [place] [address] Performed By: #### U A ####[facility] LABCLIA [id number] [place] [address] [place] Color (U) Yellow Normal Yellow [facility] Comment on above: Order Comment: Speci men Type: URINE SPECIMEN [facility] Address: [address] [place] [address] Performed By: #### U A #### [facility] CLIA [id number] [address] [place] Order Comment: Speci men Type: URINE SPECIMENOrdering Facility: [facility] Address: [address] [place] [address] Performed By: #### U A ####[facility] LABCLIA [id number] [place] [address] [place] Glucose Test strip (U) [Mass/Vol] Negative Normal Negative [facility] Comment on above: Order Comment: Speci men Type: URINE SPECIMEN [facility] Address: [address] [place] [address] Performed By: #### U A #### [facility] CLIA [id number] [address] [place] [address] [place] Order Comment: Speci men Type: URINE SPECIMENOrdering Facility: [facility] Address: [address] [place] [address] Performed By: #### U A ####[facility] LABCLIA [id number] [place] [address] [place] Hemoglobin Ql (U) 2+ Abnormal Negative [facility] Comment on above: Order Comment: Speci men Type: URINE SPECIMEN [facility] Address: [address] [place] [address] Performed By: #### U A #### [facility] CLIA [id number] [address] [place] Order Comment: Speci men Type: URINE SPECIMENOrdering Facility: [facility] Address: [address] [place] [address] Performed By: #### U A ####[facility] LABCLIA [id number] [place] [address] [place] Ketones Ql (U) Negative Normal Negative [facility] Comment on above: Order Comment: Speci men Type: URINE SPECIMEN [facility] Address: [address] [place] [address] Performed By: #### U A #### [facility] CLIA [id number] [address] [place] [address] [place] Order Comment: Speci men Type: URINE SPECIMENOrdering Facility: [facility] Address: [address] [place] [address] Performed By: #### U A ####[facility] LABCLIA [id number] [place] [address] [place] Leukocyte esterase Test strip Ql (U) 1+ Abnormal Negative [facility] Comment on above: Order Comment: Speci men Type: URINE SPECIMEN [facility] Address: [address] [place] [address] Performed By: #### U A #### [facility] CLIA [id number] [address] [place] Order Comment: Speci men Type: URINE SPECIMENOrdering Facility: [facility] Address: [address] [place] [address] Performed By: #### U A ####[facility] LABCLIA [id number] [place] [address] [place] Nitrite Ql (U) Negative Normal Negative [facility] Comment on above: Order Comment: Speci men Type: URINE SPECIMEN [facility] Address: [address] [place] [address] Performed By: #### U A #### [facility] CLIA [id number] [address] [place] [address] [place] Order Comment: Speci men Type: URINE SPECIMENOrdering Facility: [facility] Address: [address] [place] [address] Performed By: #### U A ####[facility] LABCLIA [id number] [place] [address] [place] pH (U) 6.0 [pH] Normal <8.5 [facility] Comment on above: Order Comment: Speci men Type: URINE SPECIMEN [facility] Address: [address] [place] [address] Performed By: #### U A #### [facility] CLIA [id number] [address] [place] Order Comment: Speci men Type: URINE SPECIMENOrdering Facility: [facility] Address: [address] [place] [address] Performed By: #### U A ####[facility] LABCLIA [id number] [place] [address] [place] Protein (U) [Mass/Vol] Negative Normal Negative [facility] Comment on above: Order Comment: Speci men Type: URINE SPECIMEN [facility] Address: [address] [place] [address] Performed By: #### U A #### [facility] CLIA [id number] [address] [place] Order Comment: Speci men Type: URINE SPECIMENOrdering Facility: [facility] Address: [address] [place] [address] Performed By: #### U A ####[facility] LABCLIA [id number] [place] [address] [place] Specific gravity (U) [Rel density] 1.016 Normal 1.005-1.030 [facility] Comment on above: Order Comment: Speci men Type: URINE SPECIMEN [facility] Address: [address] [place] [address] Performed By: #### U A #### [facility] CLIA [id number] [address] [place] [address] [place] Order Comment: Speci men Type: URINE SPECIMENOrdering Facility: [facility] Address: [address] [place] [address] Performed By: #### U A ####[facility] LABCLIA [id number] [place] [address] [place] Urobilinogen Ql (U) 0.2 EU/dL Normal 0.2-1.0 EU/dL [facility] Comment on above: Order Comment: Speci men Type: URINE SPECIMEN Ordering Facility: [facility] Address: [address] [place] [address] Performed By: #### U A #### [facility] CLIA [id number] [place] Order Comment: Speci men Type: URINE SPECIMENOrdering Facility: Mary Waldrop [facility] Address: [address] [facility], [place] [address] Performed By: #### U A ####[facility] LABCLIA [id number] [address] [place] .Auto Diffon 09-20-2023 Basophil, Absolute 0.1 10 3/mcL Normal 0.0-0.2 [facility] ([place]) Comment on above: Performed By: #### C FLORA SALGADO MDW, CBC, GFR, LIP, ANEU #### [address] [address] Basophils/100 WBC (Bld) 0.5 % Normal 0.0-2.5 [facility] ([place]) Comment on above: Performed By: #### C FLORA SALGADO MDW, CBC, GFR, LIP, ANEU #### [address] [address] Eosinophil, Absolute 0.1 10 3/mcL Normal 0.0-0.4 [facility] ([place]) Comment on above: Performed By: #### C FLORA SALGADO MDW, CBC, GFR, LIP, ANEU #### [address] [address] Eosinophils/100 WBC (Bld) 0.4 % Normal 0.0-7.0 [facility] ([place]) Comment on above: Performed By: #### C FLORA SALGADO MDW, CBC, GFR, LIP, ANEU #### [address] [address] Lymphocyte, Absolute 1.4 10 3/mcL Normal 0.8-3.9 [facility] ([place]) Comment on above: Performed By: #### C FLORA SALGADO MDW, CBC, GFR, LIP, ANEU #### [address] [address] Lymphocytes/100 WBC (Bld) 8.2 % Low 10.0-50.0 [facility] ([place]) Comment on above: Performed By: #### C FLORA SALGADO MDW, CBC, GFR, LIP, ANEU #### [address] [address] Monocyte, Absolute 0.6 10 3/mcL Normal 0.2-1.0 [facility] ([place]) Comment on above: Performed By: #### C FLORA SALGADO MDW, CBC, GFR, LIP, ANEU #### [address] [address] Monocytes/100 WBC (Bld) 3.5 % Normal 1.7-13.0 [facility] ([place]) Comment on above: Performed By: #### C FLORA SALGADO MDW, CBC, GFR, LIP, ANEU #### [address] [address] Neutrophils/100 WBC (Bld) 87.4 % High 37.0-80.0 [facility] ([place]) Comment on above: Performed By: #### C FLORA SALGADO MDW, CBC, GFR, LIP, ANEU #### [address] [address] .GFRon 09-20-2023 GFR 124 ml/min/1.73sqm Normal [facility] ([place]) Comment on above: Result Comment: GFR Population mean for , Non- Americans Ages 20-29 = 116 mL/min/1.73 sq.m. Ages 30-39 = 107 mL/min/1.73 sq.m. Ages 40-49 = 99 mL/min/1.73 sq.m. Ages 50-59 = 93 mL/min/1.73 sq.m. Ages 60-69 = 85 mL/min/1.73 sq.m. Ages 70+ = 75 mL/min/1.73 sq.m. Chronic Kidney Disease: Less than 60 mL/min/1.73 square meters End Stage Renal Disease: Less than 15 mL/min/1.73 square meters Performed By: #### C FLORA SALGADO MDW, CBC, GFR, LIP, ANEU #### [address] [address] GFR Non- 103 ml/min/1.73sqm Normal [facility] ([place]) Comment on above: Result Comment: GFR Population mean for , Non- Americans Ages 20-29 = 116 mL/min/1.73 sq.m. Ages 30-39 = 107 mL/min/1.73 sq.m. Ages 40-49 = 99 mL/min/1.73 sq.m. Ages 50-59 = 93 mL/min/1.73 sq.m. Ages 60-69 = 85 mL/min/1.73 sq.m. Ages 70+ = 75 mL/min/1.73 sq.m. Chronic Kidney Disease: Less than 60 mL/min/1.73 square meters End Stage Renal Disease: Less than 15 mL/min/1.73 square meters Performed By: #### C FLORA SALGADO MDW, CBC, GFR, LIP, ANEU #### [address] [address] .MDWon 09-20-2023 Monocyte Distribution Width 18.09 Normal 0.00-20.00 [facility] ([place]) Comment on above: Result Comment: For ED adult patients suspected of sepsis, MDW<=20.0 does not rule out sepsis or risk of sepsis Performed By: #### C FLROA SALGADO MDW, CBC, GFR, LIP, ANEU #### [address] [address] .NEUABSon 09-20-2023 Neutrophil, Absolute 15.4 10 3/mcL High 2.9-6.2 [facility] ([place]) Comment on above: Performed By: #### C FLORA SALGADO MDW, CBC, GFR, LIP, ANEU #### [place] [address] .Urinalysis Microscopic (AO) on 09-20-2023 UA Bacteria 1+ /hpf Abnormal [facility] ([place]) Comment on above: Performed By: #### P REGU, UAM[place], UA #### [place] [address] UA Mucous Trace Normal [facility] ([place]) Comment on above: Performed By: #### P REGU, [place]AM[place], UA #### [place] [address] UA RBC LOADED Abnormal None Seen [facility] ([place]) Comment on above: Performed By: #### P REGU, [place]AM[place], UA #### [place] [address] UA Squam Epithelial 0-5 Abnormal None Seen [facility] ([place]) Comment on above: Performed By: #### P REGU, [place], UA #### [place] [address] UA WBC 0-5 Abnormal None Seen [facility] ([place]) Comment on above: Performed By: #### P REGU, [place]AM[place], UA #### [place] [address] CBCon 09-20-2023 Erythrocyte distribution width (RBC) [Ratio] 12.7 % Normal 11.5-14.5 [facility] ([place]) Comment on above: Performed By: #### C FLORA SALGADO MDW, CBC, GFR, LIP, ANEU #### [place] [address] Hematocrit (Bld) [Volume fraction] 43.7 % Normal 37.0-47.0 [facility] ([place]) Comment on above: Performed By: #### C FLORA SALGADO MDW, CBC, GFR, LIP, ANEU #### [place] [address] Hgb 15.1 G/dL Normal 12.0-16.0 [facility] ([place]) Comment on above: Performed By: #### C FLORA SALGADO MDW, CBC, GFR, LIP, ANEU #### [place] [address] MCH (RBC) [Entitic mass] 32.3 pg High 27.0-31.2 [facility] ([place]) Comment on above: Performed By: #### C FLORA SALGADO MDW, CBC, GFR, LIP, ANEU #### [address] [address] MCHC 34.5 G/dL Normal 33.0-37.0 [facility] ([place]) Comment on above: Performed By: #### C FLORA SALGADO MDW, CBC, GFR, LIP, ANEU #### [address] [address] MCV (RBC) [Entitic vol] 93.5 fL Normal 80.0-94.0 [facility] ([place]) Comment on above: Performed By: #### C FLORA SALGADO MDW, CBC, GFR, LIP, ANEU #### [address] [address] Platelet 261 10 3/mcL Normal 130-400 [facility] ([place]) Comment on above: Performed By: #### C FLORA SALGADO MDW, CBC, GFR, LIP, ANEU #### [address] [address] Platelet mean volume (Bld) [Entitic vol] 9.0 fL Normal 7.4-10.4 [facility] ([place]) Comment on above: Performed By: #### C FLORA SALGADO MDW, CBC, GFR, LIP, ANEU #### [address] [address] RBC 4.67 10 6/mcL Normal 4.20-5.40 [facility] ([place]) Comment on above: Performed By: #### C FLORA SALGADO MDW, CBC, GFR, LIP, ANEU #### [address] [address] WBC 17.6 10 3/mcL High 4.6-10.8 [facility] ([place]) Comment on above: Performed By: #### C FLORA SALGADO MDW, CBC, GFR, LIP, ANEU #### [address] [address] CMPon 09-20-2023 Albumin Level 3.7 G/dL Normal 3.5-5.0 [facility] ([place]) Comment on above: Performed By: #### C FLORA SALGADO MDW, CBC, GFR, LIP, ANEU #### [address] [address] Albumin/Globulin [Mass ratio] 1.2 {ratio} Normal 1.1-2.5 [facility] ([place]) Comment on above: Performed By: #### C FLORA SALGADO MDW, CBC, GFR, LIP, ANEU #### [address] [address] ALP [Catalytic activity/Vol] 60 U/L Normal 40-135 [facility] ([place]) Comment on above: Performed By: #### C FLORA SALGADO MDW, CBC, GFR, LIP, ANEU #### [address] [address] ALT [Catalytic activity/Vol] 26 U/L Normal 14-59 [facility] ([place]) Comment on above: Performed By: #### C FLORA SALGADO MDW, CBC, GFR, LIP, ANEU #### [address] [address] AST [Catalytic activity/Vol] 25 U/L Normal 10-40 [facility] ([place]) Comment on above: Performed By: #### C FLORA SALGADO MDW, CBC, GFR, LIP, ANEU #### [address] [address] Bili Total 0.8 mg/dL Normal 0.2-1.0 [facility] ([place]) Comment on above: Result Comment: Use of this assay is not recommended for patients undergoing treatment with eltrombopag due to the potential for falsely elevated results. Performed By: #### C FLORA SALGADO MDW, CBC, GFR, LIP, ANEU #### [address] [address] BUN/Creatinine Ratio 9 ratio Normal 7-27 [facility] ([place]) Comment on above: Performed By: #### C FLORA SALGADO MDW, CBC, GFR, LIP, ANEU #### [address] [address] Calcium [Mass/Vol] 9.1 mg/dL Normal 8.4-10.2 [facility] ([place]) Comment on above: Performed By: #### C FLORA SAGLADO MDW, CBC, GFR, LIP, ANEU #### [address] [address] Chloride [Moles/Vol] 103 mmol/L Normal 98-107 [facility] ([place]) Comment on above: Performed By: #### C FLORA SALGADO MDW, CBC, GFR, LIP, ANEU #### [place] [address] CO2 [Moles/Vol] 22 mmol/L Normal 22-29 [facility] ([place]) Comment on above: Performed By: #### C FLORA SALGADO MDW, CBC, GFR, LIP, ANEU #### [place] [address] Creatinine [Mass/Vol] 0.65 mg/dL Normal 0.55-1.02 [facility] ([place]) Comment on above: Performed By: #### C FLORA SALGADO MDW, CBC, GFR, LIP, ANEU #### [address] [address] Electrolyte Balance 14.0 mEq/L Normal 4.0-15.0 [facility] ([place]) Comment on above: Performed By: #### C FLORA SALGADO MDW, CBC, GFR, LIP, ANEU #### [address] [address] Globulin 3.2 G/dL Normal [facility] ([place]) Comment on above: Performed By: #### C FLORA SALGADO MDW, CBC, GFR, LIP, ANEU #### [place] [address] Glucose [Mass/Vol] 122 mg/dL High 70-105 [facility] ([place]) Comment on above: Performed By: #### C FLORA SALGADO MDW, CBC, GFR, LIP, ANEU #### [address] [address] Potassium [Moles/Vol] 3.8 mmol/L Normal 3.5-5.1 [facility] ([place]) Comment on above: Performed By: #### C FLORA SALGADO MDW, CBC, GFR, LIP, ANEU #### [place] [id number] [place], [place] [address] Sodium [Moles/Vol] 139 mmol/L Normal 136-145 [facility] ([place]) Comment on above: Performed By: #### C FLORA SALGADO MDW, CBC, GFR, LIP, ANEU #### [address] [address] Total Protein 6.9 G/dL Normal 6.4-8.2 [facility] ([place]) Comment on above: Performed By: #### C FLORA SALGADO MDW, CBC, GFR, LIP, ANEU #### [address] [address] Urea nitrogen [Mass/Vol] 6 mg/dL Low 7-18 [facility] ([place]) Comment on above: Performed By: #### C FLORA SALGADO MDW, CBC, GFR, LIP, ANEU #### [address] [address] [address] ABD/PELVIS W/ IV CONTRAST ONLYon 09-20-2023 CT ABD/PELVIS W/ IV CONTRAST ONLY ORIGINAL EXAMINATION: CT OF THE ABDOMEN AND PELVIS WITH QLDZSSBI01/31/2023 12:04 am TECHNIQUE: CT of the abdomen and pelvis was performed with the administration of intravenous contrast. Multiplanar reformatted images are provided for review. Automated exposure control, iterative reconstruction, and/or weight based adjustment of the mA/kV was utilized to reduce the radiation dose to as low as reasonably achievable. COMPARISON: None. HISTORY: ORDERING SYSTEM PROVIDED HISTORY: Reason for Exam: Right flank pain. FINDINGS: The included lung bases are clear. No visualized pneumothorax or pleural effusion. The heart is normal in size. No significant pericardial effusion. The liver is normal in contour and attenuation. There is a small area of focal fatty infiltration seen along the falciform ligament. The gallbladder appears unremarkable. The spleen, adrenal glands, and pancreas appear unremarkable. There is mild right hydroureteronephrosis secondary to 0.4 cm proximal right ureteral stone. There is periureteral inflammatory fat stranding visualized. The left ureter is normal in course and caliber. The urinary bladder is under distended limiting detailed evaluation however appears within normal limits. There is mild thickening of the uterine myometrium with trace endometrial fluid visualized. No adnexal mass. Simple appearing 2.1 cm right ovarian cyst noted. The large and small bowel demonstrate no obstruction. The appendix is normal. No free intraperitoneal fluid or gas is identified. The aorta is normal in caliber. There is no lymphadenopathy. There is no acute fracture or aggressive osseous lesion. IMPRESSION: Mild right hydroureteronephrosis secondary to 0.4 cm proximal right ureteral stone. Other incidental findings as described above. I have personally reviewed the images of this examination and agree with the resident's findings and interpretation. Interpreted by: Regino Kam MD Preliminary Report By: Aundrea Best Electronically signed By Regino Kam MD Dictated Date: 09/20/2023 12:22:28 AM Prelim Date: 09/20/2023 1:02:47 AM Sign Date: 09/20/2023 1:02:47 AM Ordering Provider: JULISSA PEREIRA [facility] ([place]) ED NOTEon 09-20-2023 ED NOTE HNO ID: [id number] Author: Deisy Thakur RN Service: ? Author Type: Registered Nurse Type: ED Notes Filed: 09/19/2023 10:52 PM Note Text: Pt LWBS after triage with IV still in place. Pt went to [facility] [place] [facility]. RN contacted us requesting labs, but ended up redrawing labs. Dr. Masters notified/no orders received at this time. Normal [facility] ED NOTE HNO ID: [id number] Author: Deisy Thakur RN Service: ? Author Type: Registered Nurse Type: ED Notes Filed: 09/19/2023 10:52 PM Note Text: Patient was given a disposition of LWBS after triage Lab Studies Resulted labs were reviewed with Dr. Masters provider and there are no significant abnormalities Radiology Studies There are no in process or resulted radiology studies at this time Normal [facility] LIPon 09-20-2023 Lipase Level 18 U/L Normal 16-77 [facility] ([place]) Comment on above: Performed By: #### C FLORA SALGADO MDW, CBC, GFR, LIP, ANEU #### [place] [id number] PREGUon 09-20-2023 HCG ( test) Ql (U) Negative Normal [facility] ([place]) Comment on above: Performed By: #### P REGU, [place]AM[place], UA #### [place] [address] test (u) int Not detected Invalid Interpretation Code [facility] ([place]) Comment on above: Performed By: #### P REGU, [place], UA #### [place] [address] UAon 09-20-2023 Color (U) Brown Abnormal [facility] ([place]) Comment on above: Performed By: #### P REGU, [place], UA #### [place] [address] Glucose (U) [Mass/Vol] Negative Normal Negative [facility] ([place]) Comment on above: Performed By: #### P REGU, [place], UA #### [place] [address] [address] Ketones Ql (U) Negative Normal Negative [facility] ([place]) Comment on above: Performed By: #### P REGU, [place], UA #### [place] [address] UA Appear Cloudy Abnormal Clear [facility] ([place]) Comment on above: Performed By: #### P REGU, [place], UA #### [place] [address] [address] UA Blood Large Abnormal Negative [facility] ([place]) Comment on above: Performed By: #### P REGU, [place], UA #### [place] [address] [address] UA Leuk Est Negative Normal Negative [facility] ([place]) Comment on above: Performed By: #### P REGU, [place], UA #### [address] [address] UA Nitrite Negative Normal Negative [facility]) Comment on above: Performed By: #### P REGU, [place], UA #### [address] [address] UA pH 6.0 Normal 5.0 - 8.0 [facility]) Comment on above: Performed By: #### P REGU, [place], UA #### [place] [address] UA Protein 30 mg/dL Normal Negative [facility]) Comment on above: Performed By: #### P REGU, [place], UA #### [place] [address] UA Spec Grav 1.025 Normal 1.015-1.025 [facility]) Comment on above: Performed By: #### P REGU, [place], UA #### [address] [address] UA Specimen Type Void Normal [facility] ([place]) Comment on above: Performed By: #### P REGU, [place], UA #### [address] [address] UA Urobilinogen 0.2 E.U./dL Normal 0.2-1.0 [facility] ([place]) Comment on above: Performed By: #### P REGU, [place], UA #### [place] [address] Urobilinogen (U) [Mass/Vol] Negative Normal Negative [facility]) Comment on above: Performed By: #### P REGU, [place], UA #### [place] [address] CBC W Auto Differential pane l (Bld)on 09-19-2023 Basophils (Bld) [#/Vol] 0.11 10*3/uL High <0.11 [facility] Comment on above: Order Comment: Speci men Type: BLOOD SPECIMENOrdering Facility: [facility] Address: [address] [place] [address] Performed By: #### 5 7021-8 ####[facility] LABCLIA [id number] [place] [address] [place] Basophils/100 WBC (Bld) 0.7 % Normal [facility] Comment on above: Order Comment: Speci men Type: BLOOD SPECIMENOrdering Facility: [facility] Address: [address] [place] [address] Performed By: #### 5 7021-8 ####[facility] LABCLIA [id number] [place] [address] [place] Differential cell count method Nom (Bld) Auto Normal [facility] Comment on above: Order Comment: Speci men Type: BLOOD SPECIMENOrdering Facility: [facility] Address: [address] [place] [address] Performed By: #### 5 7021-8 ####[facility] LABCLIA [id number] [place] [id number] [place] Eosinophils (Bld) [#/Vol] 0.23 10*3/uL Normal <0.46 [facility] Comment on above: Order Comment: Speci men Type: BLOOD SPECIMENOrdering Facility: [facility] Address: [address] [place] [address] Performed By: #### 5 7021-8 ####[facility] LABCLIA [id number] [place] [address] [place] Eosinophils/100 WBC (Bld) 1.4 % Normal [facility] Comment on above: Order Comment: Speci men Type: BLOOD SPECIMENOrdering Facility: [facility] Address: [address] [place] [address] Performed By: #### 5 7021-8 ####[facility] LABCLIA [id number] [place] [address] [place] Erythrocyte distribution width (RBC) [Ratio] 12.4 % Normal 11.5-15.0 [facility] Comment on above: Order Comment: Speci men Type: BLOOD SPECIMENOrdering Facility: [facility] Address: [address] [place] [address] Performed By: #### 5 7021-8 ####[facility] LABCLIA [id number] [place] [id number] [place] Hematocrit (Bld) [Volume fraction] 47.4 % High 36.0-46.0 [facility] Comment on above: Order Comment: Speci men Type: BLOOD SPECIMENOrdering Facility: [facility] Address: [address] [place] [address] Performed By: #### 5 7021-8 ####[facility] LABCLIA [id number] [place] [id number] [place] Hemoglobin (Bld) [Mass/Vol] 16.0 g/dL High 11.5-15.5 [facility] Comment on above: Order Comment: Speci men Type: BLOOD SPECIMENOrdering Facility: [facility] Address: [address] [place] [address] Performed By: #### 5 7021-8 ####[facility] LABCLIA [id number] [place] [id number] [place] Immature granulocytes (Bld) [#/Vol] 0.10 10*3/uL High <0.10 [facility] Comment on above: Order Comment: Speci men Type: BLOOD SPECIMENOrdering Facility: [facility] Address: [address] [place] [address] Performed By: #### 5 7021-8 ####[facility] LABCLIA [id number] [place] [id number] [place] Immature granulocytes/100 WBC (Bld) 0.6 % Normal [facility] Comment on above: Order Comment: Speci men Type: BLOOD SPECIMENOrdering Facility: [facility] Address: [address] [place] [address] Performed By: #### 5 7021-8 ####[facility] LABCLIA [id number] [place] [address] [place] Lymphocytes (Bld) [#/Vol] 2.80 10*3/uL Normal 1.00-4.00 [facility] Comment on above: Order Comment: Speci men Type: BLOOD SPECIMENOrdering Facility: [facility] Address: [address] [place] [address] Performed By: #### 5 7021-8 ####[facility] LABCLIA [id number] [place] [id number] [place] Lymphocytes/100 WBC (Bld) 16.7 % Normal [facility] Comment on above: Order Comment: Speci men Type: BLOOD SPECIMENOrdering Facility: [facility] Address: [address] [place] [address] Performed By: #### 5 7021-8 ####[facility] LABIA [id number] [place] [id number] [place] MCH (RBC) [Entitic mass] 32.3 pg Normal 26.0-34.0 [facility] Comment on above: Order Comment: Speci men Type: BLOOD SPECIMENOrdering Facility: [facility] Address: [address] [place] [address] Performed By: #### 5 7021-8 ####[facility] LABIA [id number] [place] [id number] [place] MCHC (RBC) [Mass/Vol] 33.8 g/dL Normal 30.5-36.0 [facility] Comment on above: Order Comment: Speci men Type: BLOOD SPECIMENOrdering Facility: [facility] Address: [address] [place] [address] Performed By: #### 5 7021-8 ####[facility] LABIA [id number] [place] [address] [place] MCV (RBC) [Entitic vol] 95.8 fL Normal 80.0-100.0 [facility] Comment on above: Order Comment: Speci men Type: BLOOD SPECIMENOrdering Facility: [facility] Address: [address] [place] [address] Performed By: #### 5 7021-8 ####[facility] LABCLIA [id number] [place] [address] [place] Monocytes (Bld) [#/Vol] 0.75 10*3/uL Normal <0.87 [facility] Comment on above: Order Comment: Speci men Type: BLOOD SPECIMENOrdering Facility: [facility] Address: [address] [place] [address] Performed By: #### 5 7021-8 ####[facility] LABCLIA [id number] [place] [address] [place] Monocytes/100 WBC (Bld) 4.5 % Normal [facility] Comment on above: Order Comment: Speci men Type: BLOOD SPECIMENOrdering Facility: [facility] Address: [address] [place] [address] Performed By: #### 5 7021-8 ####[facility] LABCLIA [id number] [place] [address] [place] Neutrophils (Bld) [#/Vol] 12.74 10*3/uL High 1.45-7.50 [facility] Comment on above: Order Comment: Speci men Type: BLOOD SPECIMENOrdering Facility: [facility] Address: [address] [place] [address] Performed By: #### 5 7021-8 ####[facility] LABCLIA [id number] [place] [address] [place] Neutrophils/100 WBC (Bld) 76.1 % Normal [facility] Comment on above: Order Comment: Speci men Type: BLOOD SPECIMENOrdering Facility: [facility] Address: [address] [place] [address] Performed By: #### 5 7021-8 ####[facility] LABCLIA [id number] [place] [address] [place] Nucleated RBC (Bld) [#/Vol] 10*3/uL Normal <0.01 [facility] Comment on above: Order Comment: Speci men Type: BLOOD SPECIMENOrdering Facility: [facility] Address: [address] [place] [address] Performed By: #### 5 7021-8 ####[facility] LABIA [id number] [place] [id number] [place] Nucleated RBC/100 WBC (Bld) [Ratio] 0.0 /100 WBC Normal [facility] Comment on above: Order Comment: Speci men Type: BLOOD SPECIMENOrdering Facility: [facility] Address: [address] [place] [address] Performed By: #### 5 7021-8 ####[facility] LABIA [id number] [place] [id number] [place] Platelet mean volume (Bld) [Entitic vol] 10.1 fL Normal 9.0-12.7 [facility] Comment on above: Order Comment: Speci men Type: BLOOD SPECIMENOrdering Facility: [facility] Address: [address] [place] [address] Performed By: #### 5 7021-8 ####[place] [facility] [id number] [place] [address] [place] Platelets (Bld) [#/Vol] 263 10*3/uL Normal 150-400 [facility] Comment on above: Order Comment: Speci men Type: BLOOD SPECIMENOrdering Facility: [facility] Address: [address] [place] [address] Performed By: #### 5 7021-8 ####[facility]IA [id number] [place] [address] [place] RBC (Bld) [#/Vol] 4.95 10*6/uL Normal 3.90-5.20 [facility] Comment on above: Order Comment: Speci men Type: BLOOD SPECIMENOrdering Facility: [facility] Address: [address] [place] [address] Performed By: #### 5 7021-8 ####[facility]IA [id number] [place] [address] [facility] OF [place] WBC (Bld) [#/Vol] 16.73 10*3/uL High 3.70-11.00 [facility] Comment on above: Order Comment: Speci men Type: BLOOD SPECIMENOrdering Facility: [facility] Address: [address] [place] [address] Performed By: #### 5 7021-8 ####[facility] [id number] [place] [address] [facility] Comprehensive metabolic 2000 panelon 09-19-2023 Albumin [Mass/Vol] 4.3 g/dL Normal 3.9-4.9 [facility] Comment on above: Order Comment: Speci men Type: BLOOD SPECIMENOrdering Facility: [facility] Address: [address] [place] [address] Performed By: #### 2 4323-8, ####[facility] [id number] [place] [address] [place] ALP [Catalytic activity/Vol] 54 U/L Normal 34-123 [facility] Comment on above: Order Comment: Speci men Type: BLOOD SPECIMENOrdering Facility: [facility] Address: [address] [place] [address] Performed By: #### 2 4323-8, ####[facility] [id number] [place] [address] [place] ALT [Catalytic activity/Vol] 21 U/L Normal 7-38 [facility] Comment on above: Order Comment: Speci men Type: BLOOD SPECIMENOrdering Facility: [facility] Address: [address] [place] [address] Performed By: #### 2 4323-8, ####[facility] [id number] [place] [address] [place] Anion gap [Moles/Vol] 9 mmol/L Normal 9-18 [facility] Comment on above: Order Comment: Speci men Type: BLOOD SPECIMENOrdering Facility: [facility] Address: [address] [place] [address] Performed By: #### 2 4323-8, ####[facility] [id number] [place] [address] [place] AST [Catalytic activity/Vol] 18 U/L Normal 13-35 [facility] Comment on above: Order Comment: Speci men Type: BLOOD SPECIMENOrdering Facility: [facility] Address: [address] [place] [address] Performed By: #### 2 4323-8, 06241-4 ####[facility] [id number] [place] [id number] [place] Bilirubin [Mass/Vol] 0.5 mg/dL Normal 0.2-1.3 [facility] Comment on above: Order Comment: Speci men Type: BLOOD SPECIMENOrdering Facility: [facility] Address: [address] [place] [address] Performed By: #### 2 4323-8, ####[facility] [id number] [place] [address] [place] Calcium [Mass/Vol] 9.6 mg/dL Normal 8.5-10.2 [facility] Comment on above: Order Comment: Speci men Type: BLOOD SPECIMENOrdering Facility: [facility] Address: [address] [place] [address] Performed By: #### 2 4323-8, ####[facility] [id number] [place] [address] [place] Chloride [Moles/Vol] 101 mmol/L Normal 97-105 [facility] Comment on above: Order Comment: Speci men Type: BLOOD SPECIMENOrdering Facility: [facility] Address: [address] [place] [address] Performed By: #### 2 4323-8, ####[facility] [id number] [place] [address] [place] CO2 [Moles/Vol] 26 mmol/L Normal 22-30 [facility] Comment on above: Order Comment: Speci men Type: BLOOD SPECIMENOrdering Facility: [facility] Address: [address] [place] [address] Performed By: #### 2 4323-8, ####[facility] [id number] [place] [id number] [facility] Creatinine [Mass/Vol] 0.70 mg/dL Normal 0.58-0.96 [facility] Comment on above: Order Comment: Speci men Type: BLOOD SPECIMENOrdering Facility: [facility] Address: [address] [place] [address] Performed By: #### 2 4323-8, ####[facility] [id number] [address] Creatinine and Glomerular filtration rate.predicted panel (S/P/Bld) 114 mL/min/1.73m??? Normal >=60 [facility] Comment on above: Order Comment: Speci men Type: BLOOD SPECIMENOrdering Facility: [facility] Address: [address] [place] [address] Result Comment: Magdalena mated Glomerular Filtration Rate (eGFR) is calculated using the 2020 CKD-EPI creatinine equation. This equation utilizes serum creatinine, sex, and age as parameters. The creatinine assay has traceable calibration to isotope dilution-mass spectrometry. Refer to KDIGO guidelines for clinical interpretation. In patients with unstable renal function, e.g. those with acute kidney injury, the eGFR may not accurately reflect actual GFR. Performed By: #### 2 4323-8, ####[facility] [id number] [place] [address] [place] Glucose [Mass/Vol] 111 mg/dL High 74-99 [facility] Comment on above: Order Comment: Speci men Type: BLOOD SPECIMENOrdering Facility: [facility] Address: [address] [place], [place] [id number] Result Comment: The [place] [employer] (ADA) provides guidance for cutoff values for fasting glucose and random glucose. The ADA defines fasting as no caloric intake for at least 8 hours. Fasting plasma glucose results between 100 to 125 mg/dL indicate increased risk for diabetes (prediabetes). Fasting plasma glucose results greater than or equal to 126 mg/dL meet the criteria for diagnosis of diabetes. In the absence of unequivocal hyperglycemia, results should be confirmed by repeat testing. In a patient with classic symptoms of hyperglycemia or hyperglycemic crisis, random plasma glucose results greater than or equal to 200 mg/dL meet the criteria for diagnosis of diabetes. Reference: Standards of Medical Care in Diabetes 2016, [place] [employer]. Diabetes Care. 2016.39(Suppl 1). Performed By: #### 2 4323-8, ####[facility] [id number] [place] [address] [place] Potassium [Moles/Vol] 4.0 mmol/L Normal 3.7-5.1 [facility] Comment on above: Order Comment: Speci men Type: BLOOD SPECIMENOrdering Facility: [facility] Address: [address] [place], [place] [id number] Performed By: #### 2 4323-8, ####[facility] [id number] [place] [address] [place] Protein [Mass/Vol] 7.2 g/dL Normal 6.3-8.0 [facility] Comment on above: Order Comment: Speci men Type: BLOOD SPECIMENOrdering Facility: [facility] Address: [address] [place], [place] [phone] Performed By: #### 2 4323-8, ####[facility] [id number] [place] [address] [facility] Sodium [Moles/Vol] 136 mmol/L Normal 136-144 [facility] Comment on above: Order Comment: Speci men Type: BLOOD SPECIMENOrdering Facility: [facility] Address: [place] [address] Performed By: #### 2 4323-8, ####[facility] [id number] [place] [address] [place] Urea nitrogen [Mass/Vol] 8 mg/dL Normal 7-21 [facility] Comment on above: Order Comment: Speci men Type: BLOOD SPECIMENOrdering Facility: [facility] Address: [place] [address] Performed By: #### 2 4323-8, ####[facility] [id number] [place] [address] [facility] ED NOTEon 09-19-2023 ED NOTE HNO ID: [id number] Author: Deisy Thakur RN Service: ? Author Type: Registered Nurse Type: ED Notes Filed: 09/19/2023 7:49 PM Note Text: Pt arrives to ED from home d/t midline lower abdominal pain that began around 1800. States pain radiates to RLQ. C/o n/v. Denies urinary issues. Tried to take pepto bismol and vomited. Normal [facility] Magnesium SerPl-mCncon 09-19 Magnesium [Mass/Vol] 2.0 mg/dL Normal 1.7-2.3 [facility] Comment on above: Order Comment: Speci men Type: BLOOD SPECIMENOrdering Facility: [facility] Address: [place] [address] Performed By: #### 2 4323-8, ####[facility] [id number] [place] [address] [facility] [place] CNPCarmen 02-09-2023 CNPN Telephone (PODIWS) -------- ALKA HAM ([id number]) 1985 F Date Time Provider Department 02/09/23 BRITTNEY MEJÍA During your visit today, we recorded the following information about you: Brittney Mejía DPM 02/09/2023 7:41 AM Signed Please call patient to inform her that her vitamin d is low. Normal is 31-80. She is at 22. If she wants to increase her vitamin d, this should help to heal her fracture. She could likely take 2000 units of vitamin d per day. She can get this over the counter or I can call in. If she continues to be deficient in vitamin d, she may wish to also discuss with her family provider DECLAN Estrella LPN 02/09/2023 10:55 AM Signed Called patient to provide below results. No response. VM not set up. RONALDO Carreon LPN 02/09/2023 4:36 PM Signed Patient notified of results and provider's instructions. Patient verbalizes understanding. Patient elected to buy vitamin D over the counter. Merna Dick LPN Allergies As of Date: 02/09/2023 Noted Allergy Reaction PERCOCET (OXYCODONE-ACETAMINOPHEN )02/18/2013 12 - Shortness of Breath CLINDAMYCIN 03/01/2015 9 - Itching Comments: vaginal itching DEODORANT SOAP (SOAP) 09/28/2009 2 - Rash Comments: Sweet Pea LACTOSE 09/26/2009 laundry detergent [Other] 06/19/2005 2 - Rash Comments: Purex, Gain MONISTAT 1 (TIOCONAZOLE) 11/05/2007 9 - Itching VICODIN (HYDROCODONE-ACETAMINOPH E*02/18/2013 8 - GI Upset Date Reviewed: 02/05/2023 Reviewed by: Merna Dick LPN - Fully Assessed Reason for Visit: Results [95] Prescriptions as of 02/09/2023 - ibuprofen (MOTRIN) 800 mg tablet Take 800 mg by mouth three times daily as needed. - acetaminophen (TYLENOL) 325 mg tablet Take 650 mg by mouth every 6 hours as needed. - herbal drugs (MARJORAM ORAL) Take by mouth. - albuterol HFA (PROVENTIL HFA, VENTOLIN HFA) 90 mcg/actuation inhaler Inhale 2 Puffs as instructed four times daily as needed. FOR WHEEZING AND SHORTNESS OF BREATH. Meds Comments as of 01/25/2016: Pt not sure of what medications she take daily. Will update STEPHANIE. 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] 08/05/2010 12/06/2010 Depression with anxiety [F41.8] 09/26/2010 Paragard IUD 12/06/2010 SIRISHA III (vulvar intraepithelial neoplasia III) *08/20/2011 Preop exam for internal medicine [Z01.818] ADHD (attention deficit hyperactivity disorder)* Bipolar II disorder [F31.81] 07/27/2013 Encounter Status:Closed by MERNA DICK on 02/09/23 Normal [facility] 25([place])D3 [facility] 25-hydroxyvitamin D3 [Mass/Vol] 22.5 ng/mL Low 31.0-80.0 [facility] Comment on above: Order Comment: Speci men Type: BLOOD SPECIMENOrdering Facility: [facility] Address: [address] [place] [id number] Result Comment: Clas sification of 25 [place] Vitamin D status: Deficiency/Insufficiency: < or = 30 ng/ml. Sufficiency/Optimal Levels: 31-80 ng/mL Toxicity: > 100 ng/mL. Test performed by chemiluminescent immunoassay. Performed By: #### 1 989-3 ####[facility] [id number] [place] [id number] [place] CNOVon 02-05-2023 CNOV Office Visit (PODIWS ) -------- ALKA HAM ([id number]) 1985 F Date Time Provider Department 02/05/23 2:15 PM BRITTNEY MEJÍA PODIWS During your visit today, we recorded the following information about you: Merna Dick LPN 02/05/2023 10:45 PM Signed AMB ROOMING INTAKE FLOWSHEET DATA Pain Pain Level: 5 Pain Location: Foot-Right Description: Sore, Sharp Duration Amount of Time: 3 Duration Units: Weeks Frequency: Intermittent Intervention/Comfort measure: Reposition, Relaxation, Medication, Splinting Patient presents with: Right Foot - New, Fracture, Pain RONALDO Carreon DPM 02/05/2023 10:45 PM Signed Consultation requested by Dr. Fagan for an opinion regarding 5th metatarsal fracture. My final recommendations will be communicated back to the requesting physician by way of shared Medical record or letter to requesting physician via US mail. Initial Podiatric Office Visit: Chief Complaint: This 37 year old female who presents with chief complaint:fracture of right 5th metatarsal HPI Patient presents to clinic for evaluation of right foot About 3 weeks ago, she rolled her right foot trying to vacuum her mothers car She went to urgent care and was placed in a boot Patient denies any pain unless pressure is applied. PAIN EVALUATION 02/05/2023 1406 02/05/2023 1413 Pain Level: 5 -- Pain Location: Foot-Right -- Description: -- Sore;Sharp Duration Amount of Time: -- 3 Duration Units: -- Weeks Frequency: -- Intermittent Intervention/Comfort measure: -- Reposition;Relaxation;Me dication;Splinting No results found for: HBA1C PCP: Ciera Novak CNP PAST MEDICAL HISTORY Diagnosis Date ADHD (attention deficit hyperactivity disorder) Back pain Taking motrin prn Bipolar I disorder, most recent episode (or current) unspecified Bipolar II disorder (HCC) 07/27/2013 RYAN II (cervical intraepithelial neoplasia II) 2010 Condyloma Heart murmur Does not take abx with dental work Papanicolaou smear of cervix with low grade squamous intraepithelial lesion (LGSIL) 12/14/07 colposcopy 07/2008 SIRISHA III (vulvar intraepithelial neoplasia III) 2010 Current Outpatient Medications Medication Sig ibuprofen (MOTRIN) 800 mg tablet Take 800 mg by mouth three times daily as needed. acetaminophen (TYLENOL) 325 mg tablet Take 650 mg by mouth every 6 hours as needed. herbal drugs (MARJORAM ORAL) Take by mouth. albuterol HFA (PROVENTIL HFA, VENTOLIN HFA) 90 mcg/actuation inhaler Inhale 2 Puffs as instructed four times daily as needed. FOR WHEEZING AND SHORTNESS OF BREATH. No current facility-administered medications for this visit. ALLERGIES Allergen Reactions Percocet [Oxycodone* Shortness of Breath Clindamycin Itching vaginal itching Deodorant Soap [Soa* Rash Sweet Pea Lactose Laundry Detergent [* Rash Purex, Gain Monistat 1 [Tiocona* Itching Vicodin [Hydrocodon* GI Upset PAST SURGICAL HISTORY Procedure Laterality Date COLPOSCOPY CONIZATION CERVIX W/WO DANDC RPR ELTRD EXC 2011 and vulvar cO2 laser of condyloma and VINIII INSERTION OF IUD 11/2010 PARAGARD LEEP PROCEDURE (PNEUMATIC TUBE FITTER DEPT)_*FL 02/11/2013 LEEP of cervix, CO2 laser ablation of vulvar dysplasia. PAST SURGICAL HISTORY OF 2008 and 2009 CO2 laser vaporization of condyloma FAMILY HISTORY Adopted: Yes Problem Relation Age of Onset Diabetes Mother other (hpv [Other]) Mother Diabetes Maternal Grandmother Social History Tobacco Use Smoking status: Some Days Packs/day: 0.50 Years: 3.00 Pack years: 1.50 Types: Cigarettes Smokeless tobacco: Never Vaping Use Vaping Use: Never used Substance Use Topics Alcohol use: Yes Comment: Occasionally Drug use: No Comment: used marijuana in past REVIEW OF SYSTEMS GENERAL: Negative for Malaise, significant weight loss, fever RESPIRATORY: Negative for cough, wheezing and shortness of breath CARDIOVASCULAR: Negative for chest pain, leg swelling and palpitations GI: Negative for abdominal discomfort, blood in stools or black stools and change in bowel habits : Negative for dysuria, frequency and incontinence MUSCULOSKELETAL: Negative for joint pain or swelling, back pain, and muscle pain. SKIN: Negative for lesions, rash, and itching. HEMATOLOGY/LYMPHOLOGY Negative for prolonged bleeding, bruising easily, and swollen nodes. ENDOCRINE: Negative for cold or heat intolerance, polyuria, polydipsia and goiter. NEURO: negative Physical Exam: Constitutional: Pt is a well developed 37 year old female who is alert, oriented and cooperative Eyes: Following during examination. No redness or drainage. Respiratory: RR normal and nonlabored. Even breathing. No evidence of distress or shortness of breath. Psychology: Patient is engaged during conversation. Normal affect and mood. Does not appear depressed or anxious during (more content not included)... Normal [facility] XR FOOT 3V AP/LAT/OBL RTon 0 02-05-2023 XR FOOT 3V AP/LAT/OBL RT * * *Final Report* * * DATE OF EXAM: Feb 05 2023 1:48PM [id number] - XR FOOT 3V AP/LAT/OBL RT / PROCEDURE REASON: Pain in right foot * * * * Physician Interpretation * * * * XR FOOT 3V AP/LAT/OBL RT PROVIDED HISTORY: Pain in right foot COMPARISON: 01/16/2023 TECHNIQUE: 3 views RESULT: Comminuted spiral fracture of the midshaft of the metatarsal bone of the little toe is again seen with minimal displacement. Plantar calcaneal spur is noted. No dislocation or radiopaque foreign body is seen IMPRESSION: Fracture of the metatarsal of the little toe is noted unchanged in appearance Director Of Reservations: PSCB Transcribe Date/Time: Feb 07 2023 8:35P Dictated by : ELISEO PASTRANA MD This examination was interpreted and the report reviewed and electronically signed by: ELISEO PASTRANA MD on Feb 07 2023 8:36PM EST [id number] Normal [facility] XR FOOT GENERAL 3V AP/LAT/OB L RIGHTon 02-05-2023 [facility] 01-20-2023 [facility] GARRY HAMAH Yoly ([id number]) 1985 F Date Time Provider Department 01/20/23 DESTINI FERMIN [facility] During your visit today, we recorded the following information about you: Destini Fermin APRN.PASSENGER RELATIONS REPRESENTATIVE 01/20/2023 10:44 AM Signed Please notify that xray results did show fx as noted by provider. Continue with walking boot/crutches. Continue with f/u as discussed. Shannon Blanco 01/20/2023 11:37 AM Signed Patient given results and verbalized understanding of instructions given. Shannon Blanco Allergies As of Date: 01/20/2023 Noted Allergy Reaction PERCOCET (OXYCODONE-ACETAMINOPHEN )02/18/2013 12 - Shortness of Breath CLINDAMYCIN 03/01/2015 9 - Itching Comments: vaginal itching DEODORANT SOAP (SOAP) 09/28/2009 2 - Rash Comments: Sweet Pea LACTOSE 09/26/2009 laundry detergent [Other] 06/19/2005 2 - Rash Comments: Purex, Gain MONISTAT 1 (TIOCONAZOLE) 11/05/2007 9 - Itching VICODIN (HYDROCODONE-ACETAMINOPH E*02/18/2013 8 - GI Upset Date Reviewed: 01/16/2023 Reviewed by: Liana Kmi MA - Fully Assessed Reason for Visit: Results [95] Prescriptions as of 01/20/2023 - acetaminophen (TYLENOL) 500 mg tablet Take 1-2 tablets by mouth every 6 hours as needed for pain for up to 15 days. - ibuprofen (MOTRIN) 600 mg tablet Take 1 tablet by mouth every 8 hours as needed for pain for up to 15 days. - herbal drugs (MARJORAM ORAL) Take by mouth. - albuterol HFA (PROVENTIL HFA, VENTOLIN HFA) 90 mcg/actuation inhaler Inhale 2 Puffs as instructed four times daily as needed. FOR WHEEZING AND SHORTNESS OF BREATH. Meds Comments as of 01/25/2016: Pt not sure of what medications she take daily. Will update STEPHANIE. 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 Director Of Reservations: CHRISTINE Transcribe Date/Time: Jan 20 2023 9:47A Dictated by : FUNMI LORENZO MD This examination was interpreted and the report reviewed and electronically signed by: FUNMI LORENZO MD on Jan 20 2023 9:53AM [facility] DIVISION OF RADIOLOGY * * *Final Report* * * DATE OF EXAM: Jan 16 2023 12:41PM [id number] - XR FOOT 3V AP/LAT/OBL RT / PROCEDURE REASON: Foot pain, right * * * * Physician Interpretation * * * * TITLE: XR FOOT 3V AP/LAT/OBL RT CLINICAL INDICATION: Pain TECHNIQUE: 3 view radiographic study of the right foot COMPARISON: None FINDINGS: Acute, mildly comminuted though essentially nondisplaced fracture of the distal fifth metatarsal shaft. No additional osseous injury identified. Joint spaces preserved. Small plantar calcaneal enthesophyte. DIVISION OF RADIOLOGY Provider, Ccravi Lobato - 01/20/2023 * * *Final Report* * * DATE OF EXAM: Jan 16 2023 12:41PM WOX [id number] - XR FOOT 3V AP/LAT/OBL RT / PROCEDURE REASON: Foot pain, right * * * * Physician Interpretation * * * * TITLE: XR FOOT 3V AP/LAT/OBL RT CLINICAL INDICATION: Pain TECHNIQUE: 3 view radiographic study of the right foot COMPARISON: None FINDINGS: Acute, mildly comminuted though essentially nondisplaced fracture of the distal fifth metatarsal shaft. No additional osseous injury identified. Joint spaces preserved. Small plantar calcaneal enthesophyte. IMPRESSION IMPRESSION: Acute fifth metatarsal shaft fracture. Director Of Reservations: CHRISTINE Transcribe Date/Time: Jan 20 2023 9:47A Dictated by : FUNMI LORENZO MD This examination was interpreted and the report reviewed and electronically signed by: FUNMI LORENZO MD on Jan 20 2023 9:53AM EST [facility] XR Foot - right AP and Later al and obliqueOrdered By: Ccf Provider on 01-20-[address] [facility] CNOVon 01-16-2023 [facility] ALKA HAM ([id number]) 1985 F Date Time Provider Department 01/16/23 12:15 PM [facility]AN [facility] During your visit today, we recorded the following information about you: Temperature Pulse Respiration Blood pressure 97.2 degrees 72/minute 21/minute 118/72 Keith Fagan MD 01/16/2023 1:05 PM Signed Patient presents with: Trauma: Right foot injury, slipped off curb x 1 day HPI: Right foot pain: Duration: inverted foot when she tripped off a curb yesterday. Location: lateral mid to distal right foot Character: sharp Radiation: No. Aggravating: standing, moving toes, touching Relieving: Pain relievers: Associated: swelling, bruising, Pertinent negatives: Denies numbness PAST MEDICAL HISTORY Diagnosis Date ADHD (attention deficit hyperactivity disorder) Back pain Taking motrin prn Bipolar I disorder, most recent episode (or current) unspecified Bipolar II disorder ([facility]) 07/27/2013 RYAN II (cervical intraepithelial neoplasia II) 2010 Condyloma Heart murmur Does not take abx with dental work Papanicolaou smear of cervix with low grade squamous intraepithelial lesion (LGSIL) 12/14/07 colposcopy 07/2008 SIRISHA III (vulvar intraepithelial neoplasia III) 2010 MEDICATIONS: herbal drugs (MARJORAM ORAL) Take by mouth. acetaminophen (TYLENOL) 500 mg tablet Take 500-1,000 mg by mouth three times daily. albuterol HFA (PROVENTIL HFA, VENTOLIN HFA) 90 mcg/actuation inhaler Inhale 2 Puffs as instructed four times daily as needed. FOR WHEEZING AND SHORTNESS OF BREATH. ALLERGIES: ALLERGIES Allergen Reactions Percocet [Oxycodone* Shortness of Breath Clindamycin Itching vaginal itching Deodorant Soap [Soa* Rash Sweet Pea Lactose Laundry Detergent [* Rash Purex, Gain Monistat 1 [Tiocona* Itching Vicodin [Hydrocodon* GI Upset VITALS: BP 118/72 Pulse 72 Temp 36.2 ?C (97.2 ?F) Resp 21 LMP 09/25/2019 SpO2 99% PE: Pleasant, in no acute distress. FOOT/ANKLE: right . Swelling mild dorsal mid to distal lateral foot. No deformity. Range of motion: inversion - non-painful, eversion - non-painful, anterior drawer- non-painful. unable to bear weight. Palpation: Medial malleolus non-painful, lateral malleolus non-painful, Dorsal proximal midfoot - non-painful, proximal 5th metatarsal non-painful, Mid to distal 4th and 5th metatarsals are tender, posterior calcaneus non-painful ASSESSMENT/PLAN: 1. Closed nondisplaced fracture of shaft of fifth metacarpal bone of right hand, initial encounter - ICD9: 815.03, ICD10: S62.356A (primary diagnosis) 2. Foot pain, right - ICD9: 729.5, ICD10: M79.671 - XR FOOT GENERAL 3V AP/LAT/OBL RIGHT - non-displaced transverse fractures mid shaft 5th metatasal Placed in walking boot and crutches. Partial weight bearing. Follow up with ortho or podiatry in 2 weeks. Keith Fagan MD Referring Provider: SELF [200] Allergies As of Date: 01/16/2023 Noted Allergy Reaction PERCOCET (OXYCODONE-ACETAMINOPHEN )02/18/2013 12 - Shortness of Breath CLINDAMYCIN 03/01/2015 9 - Itching Comments: vaginal itching DEODORANT SOAP (SOAP) 09/28/2009 2 - Rash Comments: Sweet Pea LACTOSE 09/26/2009 laundry detergent [Other] 06/19/2005 2 - Rash Comments: Purex, Gain MONISTAT 1 (TIOCONAZOLE) 11/05/2007 9 - Itching VICODIN (HYDROCODONE-ACETAMINOPH E*02/18/2013 8 - GI Upset Date Reviewed: 01/16/2023 Reviewed by: Liana Kim MA - Fully Assessed Reason for Visit: Trauma [112] Cmt: Right foot injury, slipped off curb x 1 day Primary Visit Diagnosis:Closed nondisplaced fracture of shaft of fifth metacarpal bone of right hand, initial encounter [S62.356A] Other Visit Diagnosis:Foot pain, right [M79.671] Order(s):XR FOOT GENERAL 3V AP/LAT/OBL RIGHT [8990511] Order #: [id number] FUTURE CONSULT TO ORTHOPAEDICS [9092] Order #: [id number]: 1 FUTURE Prescriptions as of 01/16/2023 - herbal drugs (MARJORAM ORAL) Take by mouth. - acetaminophen (TYLENOL) 500 mg tablet Take 500-1,000 mg by mouth three times daily. - albuterol HFA (PROVENTIL HFA, VENTOLIN HFA) 90 mcg/actuation inhaler Inhale 2 Puffs as instructed four times daily as needed. FOR WHEEZING AND SHORTNESS OF BREATH. Meds Comments as of 01/25/2016: Pt not sure of what medications she take daily. Will update STEPHANIE. 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 Normal [facility] XR FOOT 3V AP/LAT/OBL RTon 0 01-16-2023 XR FOOT 3V AP/LAT/OBL RT * * *Final Report* * * DATE OF EXAM: Jan 16 2023 12:41PM WOX [id number] - XR FOOT 3V AP/LAT/OBL RT / PROCEDURE REASON: Foot pain, right * * * * Physician Interpretation * * * * TITLE: XR FOOT 3V AP/LAT/OBL RT CLINICAL INDICATION: Pain TECHNIQUE: 3 view radiographic study of the right foot COMPARISON: None FINDINGS: Acute, mildly comminuted though essentially nondisplaced fracture of the distal fifth metatarsal shaft. No additional osseous injury identified. Joint spaces preserved. Small plantar calcaneal enthesophyte. IMPRESSION: Acute fifth metatarsal shaft fracture. Director Of Reservations: CHRISTINE Transcribe Date/Time: Jan 20 2023 9:47A Dictated by : FUNMI LORENZO MD This examination was interpreted and the report reviewed and electronically signed by: FUNMI LORENZO MD on Jan 20 2023 9:53AM EST [id number] Normal [facility] XR Foot - right AP and Later al and obliqueon 01-16-2023 Radiology Study observation (narrative) [facility] LABORATORYOrdered By: Ondina Ellis on 08-21-2022 Albumin BCP dye [Mass/Vol] 3.7 G/dL Invalid Interpretation Code 3.5 - 5.0 G/dL AO ADM SS Albumin/Globulin [Mass ratio] 1.2 {ratio} Invalid Interpretation Code 1.1 - 2.5 ratio AO ADM SS ALP [Catalytic activity/Vol] 60 U/L Invalid Interpretation Code 40 - 135 U/L AO ADM SS ALT With P-5'-P [Catalytic activity/Vol] 22 U/L Invalid Interpretation Code 14 - 59 U/L AO ADM SS AST With P-5'-P [Catalytic activity/Vol] 16 U/L Invalid Interpretation Code 10 - 40 U/L AO ADM SS Basophil, Absolute 0.0 103/mcL Invalid Interpretation Code 0.0 - 0.2 10^3/mcL AO Workflow SS Basophils/100 WBC (Bld) 0.6 % Invalid Interpretation Code 0.0 - 2.5 % AO Workflow SS Bilirubin [Mass/Vol] 0.4 mg/dL Invalid Interpretation Code 0.2 - 1.0 mg/dL AO ADM SS Calcium [Mass/Vol] 9.1 mg/dL Invalid Interpretation Code 8.4 - 10.2 mg/dL AO ADM SS Chloride [Moles/Vol] 105 mmol/L Invalid Interpretation Code 98 - 107 mmol/L AO ADM SS CO2 [Moles/Vol] 27 mmol/L Invalid Interpretation Code 22 - 29 mmol/L AO ADM SS Creatinine [Mass/Vol] 0.61 mg/dL Invalid Interpretation Code 0.55 - 1.02 mg/dL AO ADM SS CRP [Mass/Vol] mg/dL Invalid Interpretation Code 0.0 - 0.9 mg/dL AO Chemistry S Electrolyte Balance 8.0 mEq/L Invalid Interpretation Code 4.0 - 15.0 mEq/L AO ADM SS Eosinophil, Absolute 0.3 103/mcL Invalid Interpretation Code 0.0 - 0.4 10^3/mcL AO Workflow SS Eosinophils/100 WBC (Bld) 3.5 % Invalid Interpretation Code 0.0 - 7.0 % AO Workflow SS Erythrocyte distribution width (RBC) [Ratio] 13.0 % Invalid Interpretation Code 11.5 - 14.5 % AO Workflow SS Fibrin D-dimer DDU (PPP) [Mass/Vol] ng/mL D-DU Invalid Interpretation Code 0 - 230 ng/mL D-DU AO Coag SS Globulin 3.1 G/dL Invalid Interpretation Code AO ADM SS Glucose [Mass/Vol] 102 mg/dL Invalid Interpretation Code 70 - 105 mg/dL AO ADM SS Hematocrit (Bld) [Volume fraction] 43.1 % Invalid Interpretation Code 37.0 - 47.0 % AO Workflow SS Hemoglobin (Bld) [Mass/Vol] 15.1 G/dL Invalid Interpretation Code 12.0 - 16.0 G/dL AO Workflow SS Lymphocyte, Absolute 2.6 103/mcL Invalid Interpretation Code 0.8 - 3.9 10^3/mcL AO Workflow SS Lymphocytes/100 WBC (Bld) 31.2 % Invalid Interpretation Code 10.0 - 50.0 % AO Workflow SS Magnesium [Mass/Vol] 1.8 mg/dL Invalid Interpretation Code 1.8 - 2.4 mg/dL AO ADM SS MCH (RBC) [Entitic mass] 32.7 pg Invalid Interpretation Code 27.0 - 31.2 pg AO Workflow SS MCHC 35.1 G/dL Invalid Interpretation Code 33.0 - 37.0 G/dL AO Workflow SS MCV (RBC) [Entitic vol] 93.3 fL Invalid Interpretation Code 80.0 - 94.0 fL AO Workflow SS Monocyte distribution width Auto (Bld) [Entitic vol] 17.91 Invalid Interpretation Code 0.00 - 20.00 AO Workflow SS Comment on above: Result Comment: For ED adult patients suspected of sepsis, MDW<=20.0 does not rule out sepsis or risk of sepsis Monocyte, Absolute 0.4 103/mcL Invalid Interpretation Code 0.2 - 1.0 10^3/mcL AO Workflow SS Monocytes/100 WBC (Bld) 4.7 % Invalid Interpretation Code 1.7 - 13.0 % AO Workflow SS Neutrophil, Absolute 5.1 103/mcL Invalid Interpretation Code 2.9 - 6.2 10^3/mcL AO Workflow SS Neutrophils/100 WBC (Bld) 60.0 % Invalid Interpretation Code 37.0 - 80.0 % AO Workflow SS Platelet mean volume (Bld) [Entitic vol] 8.6 fL Invalid Interpretation Code 7.4 - 10.4 fL AO Workflow SS Platelets (Bld) [#/Vol] 222 103/mcL Invalid Interpretation Code 130 - 400 10^3/mcL AO Workflow SS Potassium [Moles/Vol] 3.9 mmol/L Invalid Interpretation Code 3.5 - 5.1 mmol/L AO ADM SS Protein [Mass/Vol] 6.8 G/dL Invalid Interpretation Code 6.4 - 8.2 G/dL AO ADM SS RBC (Bld) [#/Vol] 4.62 106/mcL Invalid Interpretation Code 4.20 - 5.40 10^6/mcL AO Workflow SS Sodium [Moles/Vol] 140 mmol/L Invalid Interpretation Code 136 - 145 mmol/L AO ADM SS Troponin I.cardiac DL <= 0.01 ng/mL [Mass/Vol] 59.9 ng/L Invalid Interpretation Code 0.0 - 51.4 ng/L AO ADM SS Urea nitrogen [Mass/Vol] 10 mg/dL Invalid Interpretation Code 7 - 18 mg/dL AO ADM SS Urea nitrogen/Creatinine [Mass ratio] 16 ratio Invalid Interpretation Code 7 - 27 ratio AO ADM SS WBC (Bld) [#/Vol] 8.5 103/mcL Invalid Interpretation Code 4.6 - 10.8 10^3/mcL AO Workflow SS LABORATORYOrdered By: SYSTEM SYSTEM on 08-21-2022 GFR 135 ml/min/1.73sqm Invalid Interpretation Code AO Chemistry S GFR Non- 111 ml/min/1.73sqm Invalid Interpretation Code AO Chemistry S PG UTERUS TRANSVAGINALon PG UTERUS TRANSVAGINAL [place] Female [id number] Ordering physician: Tremaine Howell LOC:[facility] [id number] Attending physician: Tremaine Howell 1985 34 DOS: 03/06/20 Acc#: [id number] Exam/Proc: PG UTERUS TRANSVAGINAL Dept: ULTRASOUND US TRANSVAGINAL CLINICAL STATEMENT: O02.81 COMPARISON: Pelvic ultrasound February 29, 2020 FINDINGS: The uterus measures 8.1 cm x 5.4 cm x 4.3 cm and is normal in echogenicity. The endometrial double wall thickness is 9 mm. IUD has been removed over the interval, is no longer seen. Right ovary: 2.8 cm x 2.7 cm x 1.4 cm Left ovary: 3.3 cm x 2.3 cm x 2.3 cm Doppler flow is seen to the ovaries bilaterally. There is a dominant follicle within the left ovary measuring 2.8 cm, which requires no further follow-up. No pelvic nor adnexal masses are seen. There is no free intraperitoneal fluid. IMPRESSION: 1. No intrauterine gestation is identified. In light of a positive test, differentials include an early nonvisualized IUP, missed or nonvisualized ectopic. Continued serial beta-hCG levels and pelvic ultrasound is recommended. 2. Intrauterine device has been removed and is no longer seen. Electronically signed by: Marialuisa Sahu MD 03/06/2020 3:11 PM CDT REPORT SIGNATURE ON FILE Electronically Signed Date/Time: 03/06/201510 Dictated Date/time: 03/06/201510 CC: Normal [facility] HCG, QUANTITATIVEon 03-04-20 20 HCG, QUANTITATIVE 632.0 mIU/mL Normal [facility] Comment on above: Result Comment: REFE RENCE RANGE: Male <2 Non- female <6 female 0-1 week 0-50 1-2 weeks 40-300 2-3 weeks 100-1000 3-4 weeks 500-6000 1-2 months [id number] 2-3 months [id number] 2nd trimester [phone] Performed By: #### B HCG #### [address] [address] HCG, QUANTITATIVEon 03-02-20 20 HCG, QUANTITATIVE 636.0 mIU/mL Normal [facility] Comment on above: Result Comment: REFE RENCE RANGE: Male <2 Non- female <6 female 0-1 week 0-50 1-2 weeks 40-300 2-3 weeks 100-1000 3-4 weeks 500-6000 1-2 months [id number] 2-3 months [id number] 2nd trimester 3000-58502 Performed By: #### B HCG #### [address] [address] CBC with AUTO DIFFon 02-28- 020 BAS0 % 0.80 % Normal 0-2 [facility] Comment on above: Performed By: #### C BC #### [facility] [address] [place] [address] Basophils (Bld) [#/Vol] 0.1 10*3/uL Normal 0-0.1 [facility] Comment on above: Performed By: #### C BC #### [facility] [address] [place] [address] Eosinophils (Bld) [#/Vol] 0.1 10*3/uL Normal 0.0-1.80 [facility] Comment on above: Performed By: #### C BC #### [facility] [address] [place] [address] Eosinophils/100 WBC (Bld) 2.2 % Normal 0-8 [facility] Comment on above: Performed By: #### C BC #### [address] [place] [address] GRAN # 3.7 K/uL Normal 2.2-9.1 [facility] Comment on above: Performed By: #### C BC #### [address] [place] [address] GRAN % 55.1 % Normal 42-80 [facility] Comment on above: Performed By: #### C BC #### [address] [place] [address] Hematocrit (Bld) [Volume fraction] 41.5 % Normal 37.0-47.0 [facility] Comment on above: Performed By: #### C BC #### [address] [place] [address] Hemoglobin (Bld) [Mass/Vol] 14.4 g/dL Normal 12.0-16.0 [facility] Comment on above: Performed By: #### C BC #### [address] [place] [address] Lymphocytes (Bld) [#/Vol] 2.4 10*3/uL Normal 1.0-4.0 [facility] Comment on above: Performed By: #### C BC #### [facility] [address] [place] [address] Lymphocytes/100 WBC (Bld) 35.5 % Normal 16-48 [facility] Comment on above: Performed By: #### C BC #### [address] [place] [address] MCH (RBC) [Entitic mass] 34.6 g/dL Normal 31.0-36.0 [facility] Comment on above: Performed By: #### C BC #### [facility] [address] [place] [address] MCV (RBC) [Entitic vol] 92.8 fL Normal 80-97 [facility] Comment on above: Performed By: #### C BC #### [facility] [address] [place] [address] MEAN CORPUSCULAR HGB 32.1 pg High 26.0-32.0 [facility] Comment on above: Performed By: #### C BC #### [facility] [address] [place] [address] Monocytes (Bld) [#/Vol] 0.4 10*3/uL Normal 0.1-1.7 [facility] Comment on above: Performed By: #### C BC #### [facility] [address] [place] [address] Monocytes/100 WBC (Bld) 6.4 % Normal 3-9 [facility] Comment on above: Performed By: #### C BC #### [facility] [address] [place] [address] Platelet mean volume (Bld) [Entitic vol] 8.9 fL Normal 6.6-10.5 [facility] Comment on above: Performed By: #### C BC #### [facility] [address] [place] [address] Platelets (Bld) [#/Vol] 222 10*3/uL Normal 140-450 [facility] Comment on above: Performed By: #### C BC #### [facility] [address] [place] [address] RBC (Bld) [#/Vol] 4.48 10*6/uL Normal 4.20-5.50 [facility] Comment on above: Performed By: #### C BC #### [facility] [address] [place] [address] RED CELL DISTRI WIDTH 12.4 % Normal 11.0-15.5 [facility] Comment on above: Performed By: #### C BC #### [facility] [address] [place] [address] WBC (Bld) [#/Vol] 6.7 10*3/uL Normal 4.0-11.0 [facility] Comment on above: Performed By: #### C BC #### [address] [address] ED.PDOCon 02-29-2020 ED.PDOC [place] [id number] Attending provider: [facility] ER [id number] Felix Museen 1985 34 DOS: 02/29/20 Hx/Exam - History of Present Illness Chief Complaint: VAGINAL BLEEDING Additional Comments: Patient is a M1 Her IUD was placed 2 months ago. She has no pain with it. No fevers or chills. Its been fairly steady for the last 2 weeks. with an intrauterine device who comes with 5 positive tests at home and intermittent spotting and bleeding.Bleeding is reported as 1 pad or tampon per day and not saturated. Duration of bleeding has been 2 weeks. Defy tests have been over the past week and all were positive. She states she is Rh negative. Her IUD was placed 2 months ago. She has no pain with it. No fevers or chills. Its been fairly steady for the last 2 weeks. - Review of Systems All Other Systems: Pertinent Positives in HPI, All Other Systems Negative Constitutional: Denies: Fever, Chills, Sweats, Weakness, Malaise Gastrointestinal: Denies: Nausea, Vomiting, Abdominal Pain, Diarrhea, Constipation Genitourinary: Vaginal bleed/discharge. Denies: Dysuria, Frequency, Urgency Reproductive: Denies: Denies Presumptive (5 positive tests over the past week ) Musculoskeletal: Denies: Neck Pain, Back Pain Neurological: Denies: Headache, Weakness Psychiatric: Denies: Anxiety, Depression - Past Medical History General History: Yes Anxiety, No Diabetes Comments: IUD placed two months ago - Past Surgical History Surgical History: Yes Other (IUD placement) Comments: Laser surgery for vagina. - Social History Smoking Status: Never Smoker Hx Drug Use: None Living Conditions: Family - Physical Exam General Appearance: awake, alert, no apparent distress Eyes: PERRL, EOMI, conjunctivae clear Respiratory: lungs clear Cardiovascular: regular rate, rhythm Abdomen/GI: non tender, soft Back: no CVA tenderness Extremity: normal inspection Neurologic: speech clear/fluent, logistics specialist II-XII intact Psychiatric: oriented x3, calm, normal affect Skin Exam: warm/dry, normal color - Source of History Source of History: Nursing Notes/Vital Signs/Triage Reviewed and Agree Note(s) - Physician Notes Additional Notes, See Orders for Details: 02/29/20 14:23 Exam/Proc: PG UTERUS TRANSVAGINAL Dept: ULTRASOUND US TRANSVAGINAL CLINICAL STATEMENT: Pain. COMPARISON: None FINDINGS: The uterus measures 7.6 cm in length. No intrauterine gestation is identified at this time. An intrauterine device identified. The right ovary is 2.8 x 3.6 x 2.0 cm and the left ovary 3.0 x 2.4 x 1.6 cm. Doppler evaluation of the left ovary is suboptimal due to ovary position in the pelvis. Doppler flow is grossly present. No adnexal lesions seen. No significant free fluid identified. IMPRESSION: 1. No intrauterine gestation is identified at this time. Correlate with hCG levels and follow-up. 2. Intrauterine device is identified. Electronically signed by: Khanh Portillo MD 02/29/2020 12:38 PM CDT 02/29/20 14:34 White count is normal at 6.7 no left shift. Hemoglobin stable at 14.4 so no anemia from this. Quantitative hCG is 638. She states she is Rh negative so the RhoGAM protocol has been done. The ultrasound is unremarkable as above. 02/29/20 15:[address] Dietrich And his nurse practitioner. They have asked me to remov the IUD. I went on with my nurse, Erica 2 inform the patient we need to take out her IUD. Patient was comfortable with this. Erica state as esters and emulsifiers supervisor. Patient was placed in the stirrups and pelvic exam revealed 2 strings were easily removed with a pair of forceps pulling out the IUD. She is gonna get RhoGAM and follow up in the clinic Thursday with Dr. Dietrich. I am writing her a prescription to get a quant drawn before her appointment. 02/29/20 15:15 EKG - EKG EKG Interpretation: Not Applicable Discharge Screen - Discharge Discharge Problem: Threatened , History of use of contraceptive intrauterine device (IUD) Disposition: HOME/SELF CARE Additional Instructions: Please get your serum quant drawn Thursday morning before you go for your appointment. Condition: Stable Instructions: DI for Threatened Referrals: provider (Unknown),Unlisted [Primary Care Provider] - Jamshid Dietrich [ACTIVE] - 2-3 Days (They need to see you in the office on Thursday after you get your serum quant hCG drawn ) Dictated By: Henry Muse MD Dictated Date/Time:02/29/20 1423 Electronically Signed Date/Time: 02/29/20 1520 Normal [facility] HCG, QUANTITATIVEon 02-29-20 20 HCG, QUANTITATIVE 638.0 mIU/mL [facility] Comment on above: Result Comment: REFE RENCE RANGE: Male <2 Non- female <6 female 0-1 week 0-50 1-2 weeks 40-300 2-3 weeks 100-1000 3-4 weeks 500-6000 1-2 months [id number] 2-3 months [id number] 2nd trimester [id number] Performed By: #### B HCG #### [address] [address] PG UTERUS TRANSVAGINALon PG UTERUS TRANSVAGINAL [place] Female [id number] Ordering physician: Henry Muse LOC:ER [id number] Attending physician: 1985 34 DOS: 02/29/20 Acc#: [id number] Exam/Proc: PG UTERUS TRANSVAGINAL Dept: ULTRASOUND US TRANSVAGINAL CLINICAL STATEMENT: Pain. COMPARISON: None FINDINGS: The uterus measures 7.6 cm in length. No intrauterine gestation is identified at this time. An intrauterine device identified. The right ovary is 2.8 x 3.6 x 2.0 cm and the left ovary 3.0 x 2.4 x 1.6 cm. Doppler evaluation of the left ovary is suboptimal due to ovary position in the pelvis. Doppler flow is grossly present. No adnexal lesions seen. No significant free fluid identified. IMPRESSION: 1. No intrauterine gestation is identified at this time. Correlate with hCG levels and follow-up. 2. Intrauterine device is identified. Electronically signed by: Khanh Portillo MD 02/29/2020 12:38 PM CDT REPORT SIGNATURE ON FILE Electronically Signed Date/Time: 02/29/20 1238 Dictated Date/time: 02/29/20 1238 CC: Normal [facility] Lab Report: (P) Urinalysis, Completeon 09-17-2017 Nitrite Urine Negative Invalid Interpretation Code Negative [facility] Occult Blood, urine 10 High Negative [facility] specific gravity, urine 1.020 Invalid Interpretation Code 1.002-1.030 [facility] Urine, bilirubin presence Negative Invalid Interpretation Code Negative [facility] Urine, clarity Clear Invalid Interpretation Code Clear [facility] Urine, color Yellow Invalid Interpretation Code Yellow [facility] Urine, glucose presence Normal mg/dl Invalid Interpretation Code Normal [facility] Urine, ketones presence Negative Invalid Interpretation Code Negative [facility] Urine, leukocyte esterase presence Negative Invalid Interpretation Code Negative [facility] Urine, pH 6.0 [pH] Invalid Interpretation Code 5.0 - 8.0 [facility] Urine, protein Negative Invalid Interpretation Code Negative [facility] urobilinogen, urine, by dipstick Normal mg/dl Invalid Interpretation Code Normal [facility] Lab Report: Urinalysis, Comp leteon 09-17-2017 Urine, bacteria in sediment 0 /[HPF] Invalid Interpretation Code None Seen [facility] Urine, epithelial cells in sediment 0-5 SEEN Invalid Interpretation Code 5-10 [facility] Urine, erythrocytes in sediment by volume 0-5 SEEN Invalid Interpretation Code 0-5 [facility] Urine, mucus presence in sediment 0 SEEN Invalid Interpretation Code [facility] WBC (Leukocytes) 0 SEEN Invalid Interpretation Code 0-5 [facility] Lab Report: PAP I-G HPV Hi R iskon 04-28-2017 GE use only - for LinkLogic import when terms are not otherwise specified Positive High Negative [facility] HPV HC,[facility] RISK Positive High Negative [facility] Replaced Document: Culture, Urineon 04-24-2017 GE use only - for LinkLogic import when terms are not otherwise specified Trimethoprim/Sulfametho $ <=[address] [facility] Office Visit: est annualon 0 04-22-2017 Documentation of current medications (procedure) Done Invalid Interpretation Code [facility] Hemoglobin presence in stool not done Invalid Interpretation Code [facility] Protein mass conc yes [facility] Protein mass conc Done [facility] Smoking cessation education (procedure) yes Invalid Interpretation Code [facility] Tobacco smoking status NHIS Never Invalid Interpretation Code [facility] Tobacco smoking status NHIS Tobacco smoking status NHIS Invalid Interpretation Code [facility] Tobacco smoking status NHIS [facility] Tobacco use HS Current every day smoker Invali d Interpretation Code [facility] Vital Signs Date Time Vital Sign Value Performing Clinician Facility 01-16-2023 12:01-0400 Body temperature 97.2 [degF] Keith Fagan MD Work Phone: [facility] 01-16-2023 12:01-0400 Diastolic blood pressure 72 mm[Hg] Keith Fagan MD Work Phone: [facility] 01-16-2023 12:01-0400 Heart rate 72 /min Keith Fagan MD Work Phone: [facility] 01-16-2023 12:01-0400 Respiratory rate 21 /min Keith Fagan MD Work Phone: [facility] 01-16-2023 12:01-0400 SaO2% (BldA) [Mass fraction] 99 % Keith Faagn MD Work Phone: [facility] 01-16-2023 12:01-0400 Systolic blood pressure 118 mm[Hg] Keith Fagan MD Work Phone: [facility] 08-21-2022 17:16-0500 Diastolic Blood Pressure Non-Invasive [address] BREANNE RAMOS MD [facility] 08-21-2022 17:16-0500 Heart rate 67 /min DR BREANNE RAMOS MD [facility] 08-21-2022 17:16-0500 Respiratory rate 20 /min DR BREANNE RAMOS MD [facility] 08-21-2022 17:16-0500 Systolic Blood Pressure Non-Invasive [address] BREANNE RAMOS MD [facility] 08-21-2022 16:13-0500 Diastolic Blood Pressure Non-Invasive [address] BREANNE RAMOS MD [facility] 08-21-2022 16:13-0500 Heart rate 55 /min DR BREANNE RAMOS MD [facility] 08-21-2022 16:13-0500 Reason For Taking VItal Signs DR BREANNE RAMOS MD [facility] 08-21-2022 16:13-0500 Respiratory rate 18 /min DR BREANNE RAMOS MD [facility] 08-21-2022 16:13-0500 Systolic Blood Pressure Non-Invasive [address] BREANNE RAMOS MD [facility] 08-21-2022 13:30-0500 Body temperature 99.32 [degF] DR BREANNE RAMOS MD [facility] 08-21-2022 13:30-0500 Diastolic Blood Pressure Non-Invasive [address] BREANNE RAMOS MD [facility] 08-21-2022 13:30-0500 Heart rate 78 /min DR BREANNE RAMOS MD [facility] 08-21-2022 13:30-0500 Respiratory rate 16 /min DR BREANNE RAMOS MD [facility] 08-21-2022 13:30-0500 Systolic Blood Pressure Non-Invasive [address] BREANNE RAMOS MD [facility] Encounters Encounter Date Encounter Type Care Provider Facility Start: 09-19-2023 End: 09-20-2023 Emergency department patient visit CIERA NOVAK WOOL 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 Facility:B Start: 02-05-2023 End: 02-06-2023 ambulatory CIERA NOVAK Facility:[facility] Start: 02-05-2023 End: 02-05-2023 ambulatory CIERA NOVAK Facility:[facility] Start: 02-05-2023 End: 02-05-2023 Subsequent hospital visit by physician Donna [facility] Iwona Vega Work Phone: Radiology Comment on above: Pain in right foot [ M79.671] Start: 01-30-2023 Orders Only Brittney Ousmane domingo Work Phone: Podiatry Comment on above: Pain in right foot ( Primary Dx) Start: 01-16-2023 End: 01-16-2023 ambulatory CIERA NOVAK Facility:[facility] Start: 01-16-2023 End: 01-16-2023 Patient encounter procedure Keith Fagan MD Work Phone: [facility] Comment on above: Closed nondisplaced fracture of shaft of fifth metacarpal bone of right hand, initial encounter (Primary Dx); Foot pain, right Refill Request Start: 01-16-2023 End: 01-16-2023 Subsequent hospital visit by physician Donna [facility] [place] Work Phone: Radiology Comment on above: Foot pain, right [M7 9.671] Start: 08-21-2022 End: 08-21-2022 Emergency department patient visit DR BREANNE RAMOS MD [facility] Start: 01-19-2018 Ambulatory HAYLEE NICHOLE Facility: [id number] Start: 06-12-2017 Ambulatory Tremaine Moya [facility] [id number] Start: 01-19-2013 Patient encounter status Keith Fagan MD Work Phone: [facility] Work Phone: Procedures Date Procedure Procedure Detail Performing Clinician Start: 02-05-2023 Radex foot complete minimum 3 views Brittney Mejía Work Phone: Start: 01-16-2023 Radex foot complete minimum 3 views Keith Fagan MD Work Phone: Start: 04-22-2017 End: 10-06-2017 *CUUID - Urine EFRAIN Culture - Identificatn Marixa Levine MD Work Phone: Start: 04-22-2017 Gynecologic examination Encounter for gynecological examination (general) (routine) with abnormal findings Marixa Levine MD Start: 04-22-2017 Screening for malignant neoplasm of cervix Screening, cervical cancer Marixa Levine MD Start: 04-22-2017 End: 04-22-2017 Urinalysis nonauto w/o scope Marixa Levine MD Work Phone: Vaginal structure (b cl structure) DR BREANNE RAOMS MD Plan of Treatment Date Care Activity Detail Author Start: 05-22-2024 Covid-19 Vaccine ( season) Covid-19 Vaccine () [facility] Start: 05-22-2024 Influenza vaccination Influenza Vacc ine (#1) [facility] Start: 05-22-2023 Influenza vaccination [facility] Start: 11-04-2020 Urine microalbumin profile [facility] Start: 10-26-2020 ANNUAL PCP TEAM YARDAGE CONTROL CLERK EMMANUEL DISEASE VISIT ANNUAL PCP TEAM CHRONIC DISEASE VISIT [facility] Start: 02-10-2019 PAP TESTING PAP TESTING [facility] Start: 04-22-2017 End: 04-22-[address] [facility] Start: 04-22-2017 End: 10-06-2017 *CUUID - Urine EFRAIN Culture - Identificatn *CUUID - Urine EFRAIN Culture - Identificatn [facility] Start: 02-10-2017 Screening for malign ant neoplasm of cervix Cervical Cancer Screening [facility] Start: 2016 HPV TESTING HPV TESTING [facility] Start: 02-14-2015 PNEUMOCOCCAL (2 - PCV) PNEUMOCOCCAL (2 - PCV) [facility] Start: 02-14-2015 Pneumococcal vaccination [facility] Start: 2005 Hepatitis B Vaccine (1 of 3 - 19+ 3-dose series) Hepatitis B Vaccine (1 of 3 - 19+ 3-dose series) [facility] Start: 2004 SPIROMETRY SPIROMETRY [facility] Start: 1986 COVID-19 VACCINE (#1) COVID-19 VACCI NE (#1) [facility] Start: 1986 HEPATITIS B (1 of 3 - 3-dose series) HEPATITIS B (1 of 3 - 3-dose series) [facility] Start: 1986 Hepatitis B Vaccine (1 of 3 - 3-dose series) Hepatitis B Vaccine (1 of 3 - 3-dose series) [facility] End: 02-15-2024 XR FOOT GENERAL 3V AP/LAT/OBL RIGHT XR FOOT GENERAL 3V AP/LAT/OBL RIGHT Radiology Routine Foot pain, right 1 Occurrences starting 01/16/2023 until 02/15/2024 [facility] Work Phone: Comment on above: 1 Occurrences starti ng 01/16/2023 until 02/15/2024 XR FOOT GENERAL 3V AP/LAT/OBL RIGHT XR FOOT GENERAL 3V AP/LAT/OBL RIGHT Radiology Routine Foot pain, right 01/16/2023 12:41 PM EDT [facility] Work Phone: End: 02-29-2024 XR FOOT GENERAL 3V AP/LAT/OBL RIGHT XR FOOT GENERAL 3V AP/LAT/OBL RIGHT Radiology Routine Pain in right foot 1 Occurrences starting 01/30/2023 until 02/29/2024 [facility] Work Phone: Comment on above: 1 Occurrences starti ng 01/30/2023 until 02/29/2024 [facility] Immunizations Immunization Date Immunization Notes Care Provider Kimberly junior 08-26-2016 influenza, injectabl e, quadrivalent, contains preservative Keith Fagan MD Work Phone: [facility] 08-26-2016 influenza virus vacc ine, unspecified formulation Xr Mob Work Phone: [facility] 08-30-2015 influenza, injectabl e, quadrivalent, contains preservative Keith Fagan MD Work Phone: [facility] 08-30-2015 influenza, seasonal, injectable Keith Fagan MD Work Phone: [facility] 02-14-2014 pneumococcal polysaccharide vaccine, 23 valent Keith Fagan MD Work Phone: [facility] 11-04-2010 RHO(D) immune globul in- IV or IM Keith Fagan MD Work Phone: [facility] Work Phone: 11-04-2010 tetanus toxoid, redu adilia diphtheria toxoid, and acellular pertussis vaccine, adsorbed Keith Fagan MD Work Phone: [facility] 05-01-2008 RHO(D) immune globul in- IV or IM Keith Fagan MD Work Phone: [facility] Payers Date Payer Category Payer Medicaid [facility] MEDIC AID [facility] MEDICAID [id number] 2022-Present [phone] [address] [place] [address] Medicaid [id number] 2022 Unknown [id number] 1986 Unknown [id number] Unknown [id number] Social History Date Type Detail Facility Start: 04-18-2019 Tobacco smoking status Light t obacco smoker (finding) [facility] Sex Assigned At Sex [facility] Start: 01-16-2023 Tobacco smoking stat us NHIS Occasional tobacco smoker [facility] History of tobacco use Cigarette Smoker [facility] Start: 08-26-2020 End: 01-16-2023 Cigarettes smoked current (pack per day) - Reported 0.[address] [facility] Start: 01-16-2023 Tobacco use and exposure Smoke less tobacco non-user [facility] Start: 01-16-2023 Alcohol intake Current drinke r of alcohol (finding) [facility] Start: 1985 Sex Assigned At Not on file [facility] Start: 08-26-2020 End: 01-16-2023 Tobacco use panel [facility] National Score (1-10 0), lower number is lower risk [address] [facility] Functional Status Date Assessment Result Facility 08-21-2022 Functional Status Up ad gabo [facility] 08-21-2022 Functional Status Standard Safet y ID band on, Call device within reach, Bed in low position, Wheels locked, Bedside Cart Locked, Visitor at bedside, Safety level maintained [facility] 08-21-2022 Functional Status [facility] Mental Status Date Assessment Result Facility 08-21-2022 Mental Status Orientation Oriented x 4 [facility] 08-21-2022 Mental Status [facility] 08-21-2022 Mental Status [facility] Clinical Notes 08-05-2010 to 02-05-2023 Shasha Styles, RT(R) - 02/05/2023 1:50 PM EDTTelephone Encounter - Christie Pérez LPN - 01/19/2023 2:31 PM EDTTelephone Encounter - Keith Fagan MD - 01/16/2023 3:06 PM EDT Note Date & Type Note Facility 02-05-2023 Note HNO ID: [id number] Author: Brittney Mejía Service: ? Author Type: Physician Type: Progress Notes Filed: 02/05/2023 10:45 PM Note Text: Consultation requested by Dr. Fagan for an opinion regarding 5th metatarsal fracture. My final recommendations will be communicated back to the requesting physician by way of shared Medical record or letter to requesting physician via US mail. Initial Podiatric Office Visit: Chief Complaint: This 37 year old female who presents with chief complaint:fracture of right 5th metatarsal HPI Patient presents to clinic for evaluation of right foot About 3 weeks ago, she rolled her right foot trying to vacuum her mothers car She went to urgent care and was placed in a boot Patient denies any pain unless pressure is applied. PAIN EVALUATION 02/05/2023 1406 02/05/2023 1413 Pain Level: 5 -- Pain Location: Foot-Right -- Description: -- Sore;Sharp Duration Amount of Time: -- 3 Duration Units: -- Weeks Frequency: -- Intermittent Intervention/Comfort measure: -- Reposition;Relaxation;Medication ;Splinting No results found for: HBA1C PCP: Ciera Novak CNP PAST MEDICAL HISTORY Diagnosis Date ADHD (attention deficit hyperactivity disorder) Back pain Taking motrin prn Bipolar I disorder, most recent episode (or current) unspecified Bipolar II disorder (HCC) 07/27/2013 RYAN II (cervical intraepithelial neoplasia II) 2010 Condyloma Heart murmur Does not take abx with dental work Papanicolaou smear of cervix with low grade squamous intraepithelial lesion (LGSIL) 12/14/07 colposcopy 07/2008 SIRISHA III (vulvar intraepithelial neoplasia III) 2010 Current Outpatient Medications Medication Sig ibuprofen (MOTRIN) 800 mg tablet Take 800 mg by mouth three times daily as needed. acetaminophen (TYLENOL) 325 mg tablet Take 650 mg by mouth every 6 hours as needed. herbal drugs (MARJORAM ORAL) Take by mouth. albuterol HFA (PROVENTIL HFA, VENTOLIN HFA) 90 mcg/actuation inhaler Inhale 2 Puffs as instructed four times daily as needed. FOR WHEEZING AND SHORTNESS OF BREATH. No current facility-administered medications for this visit. ALLERGIES Allergen Reactions Percocet [Oxycodone* Shortness of Breath Clindamycin Itching vaginal itching Deodorant Soap [Soa* Rash Sweet Pea Lactose Laundry Detergent [* Rash Purex, Gain Monistat 1 [Tiocona* Itching Vicodin [Hydrocodon* GI Upset PAST SURGICAL HISTORY Procedure Laterality Date COLPOSCOPY CONIZATION CERVIX W/WO DANDC RPR ELTRD EXC 2011 and vulvar cO2 laser of condyloma and VINIII INSERTION OF IUD 11/2010 PARAGARD LEEP PROCEDURE (PNEUMATIC TUBE FITTER DEPT)_*FL 02/11/2013 LEEP of cervix, CO2 laser ablation of vulvar dysplasia. PAST SURGICAL HISTORY OF 2008 and 2009 CO2 laser vaporization of condyloma FAMILY HISTORY Adopted: Yes Problem Relation Age of Onset Diabetes Mother other (hpv [Other]) Mother Diabetes Maternal Grandmother Social History Tobacco Use Smoking status: Some Days Packs/day: 0.50 Years: 3.00 Pack years: 1.50 Types: Cigarettes Smokeless tobacco: Never Vaping Use Vaping Use: Never used Substance Use Topics Alcohol use: Yes Comment: Occasionally Drug use: No Comment: used marijuana in past REVIEW OF SYSTEMS GENERAL: Negative for Malaise, significant weight loss, fever RESPIRATORY: Negative for cough, wheezing and shortness of breath CARDIOVASCULAR: Negative for chest pain, leg swelling and palpitations GI: Negative for abdominal discomfort, blood in stools or black stools and change in bowel habits : Negative for dysuria, frequency and incontinence MUSCULOSKELETAL: Negative for joint pain or swelling, back pain, and muscle pain. SKIN: Negative for lesions, rash, and itching. HEMATOLOGY/LYMPHOLOGY Negative for prolonged bleeding, bruising easily, and swollen nodes. ENDOCRINE: Negative for cold or heat intolerance, polyuria, polydipsia and goiter. NEURO: negative Physical Exam: Constitutional: Pt is a well developed 37 year old female who is alert, oriented and cooperative Eyes: Following during examination. No redness or drainage. Respiratory: RR normal and nonlabored. Even breathing. No evidence of distress or shortness of breath. Psychology: Patient is engaged during conversation. Normal affect and mood. Does not appear depressed or anxious during encounter. Vascular: Dorsalis pedis and posterior tibial pulses palpable as b/l Capillary Fill time < 5 seconds to digits 1-5 b/l Skin temperature warm to warm proximal to distal b/l Hair growth present to digits Neurological: intact light touch/epicritic sensation b/l intact protective sensation no significant neurological deficits Dermatological: Nails 1-5 b/l appear normal. Webspaces clean and dry 1-4 b/l. Skin appears well hydrated and supple. good color, texture, turgor. No open lesions present. No callosities present. Musculoskeletal/Orthopaedic: Pa (more content not included)... [facility] 02-05-2023 Note HNO ID: [id number] Author: Merna Dick LPN Service: ? Author Type: LICENSED NURSE Type: Progress Notes Filed: 02/05/2023 10:45 PM Note Text: AMB ROOMING INTAKE FLOWSHEET DATA Pain Pain Level: 5 Pain Location: Foot-Right Description: Sore, Sharp Duration Amount of Time: 3 Duration Units: Weeks Frequency: Intermittent Intervention/Comfort measure: Reposition, Relaxation, Medication, Splinting Patient presents with: Right Foot - New, Fracture, Pain Merna Dcik LPN [facility] 02-05-2023 Note HNO ID: [id number] Author: RT Cristofer(Page) Service: Radiology Author Type: Technologist Type: Progress Notes Filed: 02/05/2023 1:49 PM Note Text: Radiology Service Progress Note PATIENT NAME: Alka Ham DATE OF SERVICE: February 05, 2023 TIME: 1:42 PM PATIENT IDENTITY VERIFICATION COMPLETED USING TWO (2) IDENTIFIERS: Name and Date of confirmed by patient verbally. FALL SCREENING: Has the patient had 2 falls in the last year or 1 fall with injury or currently using an Ambulatory Assistive Device (Walker, Cane, Wheelchair, Crutches, etc.)? No PATIENT GENDER DATA: Female. status: : No status: NO. PATIENT RELEVANT IMPLANT DATA REVIEWED: Yes RADIOLOGY DEPARTMENT: General X-ray: Exam(s) Completed: Lower Extremity X-Ray(s): Foot, Right PERIPHERAL IV DATA: Not applicable SIGNED BY: RT Cristofer(Page) February 05, 2023 1:42 PM [facility] 02-05-2023 History of Presen t illness Narrative Radiology Service Progress Note PATIENT NAME: Alka Ham DATE OF SERVICE: February 05, 2023 TIME: 1:42 PM PATIENT IDENTITY VERIFICATION COMPLETED USING TWO (2) IDENTIFIERS: Name and Date of confirmed by patient verbally. FALL SCREENING: Has the patient had 2 falls in the last year or 1 fall with injury or currently using an Ambulatory Assistive Device (Walker, Cane, Wheelchair, Crutches, etc.)? No PATIENT GENDER DATA: Female. status: : No status: NO. PATIENT RELEVANT IMPLANT DATA REVIEWED: Yes RADIOLOGY DEPARTMENT: General X-ray: Exam(s) Completed: Lower Extremity X-Ray(s): Foot, Right PERIPHERAL IV DATA: Not applicable SIGNED BY: RT Cristofer(Page) February 05, 2023 1:42 PM documented in this encounter [facility] 01-19-2023 Miscellaneous Notes Spoke with pt today and she was not aware medication was sent to the pharmacy on 01-16-23 and did not picker feeder. Pt saw her provider today and medication was called in. Cancelled medication from 01-16-23 Tylenol 500 mg. and Ibuprofen 600 mg.from [facility] Provider. Pt will picker feeder what her provider called for her today. Her provider sent in Ibuprofen 800 mg. Christie Pérez LPN Rx's sent. Patient calling she was just seen in [facility] and now asking for refills on her generic tylenol and Ibuprofen 800 mg one tablet three times daily as needed for pain. Her provider is not in until Thursday. Patient uses [facility] for her pharmacy. Patient said she needs something for pain. Pending rx needs completed if wanted. If provider does not want to do rx, patient wants to know what she can take OTC. Please advise documented in this encounter [facility] 01-16-2023 Note HNO ID: [id number] Author: Shasha Styles RT(R) Service: Radiology Author Type: Technologist Type: Progress Notes Filed: 01/16/2023 12:42 PM Note Text: Radiology Service Progress Note PATIENT NAME: Alka Ham DATE OF SERVICE: January 16, 2023 TIME: 12:34 PM PATIENT IDENTITY VERIFICATION COMPLETED USING TWO (2) IDENTIFIERS: Name and Date of confirmed by patient verbally. FALL SCREENING: Has the patient had 2 falls in the last year or 1 fall with injury or currently using an Ambulatory Assistive Device (Walker, Cane, Wheelchair, Crutches, etc.)? No PATIENT GENDER DATA: Female. status: : No status: NO. PATIENT RELEVANT IMPLANT DATA REVIEWED: Yes RADIOLOGY DEPARTMENT: General X-ray: Exam(s) Completed: Lower Extremity X-Ray(s): Foot, Right PERIPHERAL IV DATA: Not applicable SIGNED BY: Shasha Styles, RT(R) January 16, 2023 12:34 PM [facility] 01-16-2023 Note HNO ID: [id number] Author: Keith Fagan MD Service: ? Author Type: Physician Type: Progress Notes Filed: 01/16/2023 1:05 PM Note Text: Patient presents with: Trauma: Right foot injury, slipped off curb x 1 day HPI: Right foot pain: Duration: inverted foot when she tripped off a curb yesterday. Location: lateral mid to distal right foot Character: sharp Radiation: No. Aggravating: standing, moving toes, touching Relieving: Pain relievers: Associated: swelling, bruising, Pertinent negatives: Denies numbness PAST MEDICAL HISTORY Diagnosis Date ADHD (attention deficit hyperactivity disorder) Back pain Taking motrin prn Bipolar I disorder, most recent episode (or current) unspecified Bipolar II disorder (HCC) 07/27/2013 RYAN II (cervical intraepithelial neoplasia II) 2010 Condyloma Heart murmur Does not take abx with dental work Papanicolaou smear of cervix with low grade squamous intraepithelial lesion (LGSIL) 12/14/07 colposcopy 07/2008 SIRISHA III (vulvar intraepithelial neoplasia III) 2010 MEDICATIONS: herbal drugs (MARJORAM ORAL) Take by mouth. acetaminophen (TYLENOL) 500 mg tablet Take 500-1,000 mg by mouth three times daily. albuterol HFA (PROVENTIL HFA, VENTOLIN HFA) 90 mcg/actuation inhaler Inhale 2 Puffs as instructed four times daily as needed. FOR WHEEZING AND SHORTNESS OF BREATH. ALLERGIES: ALLERGIES Allergen Reactions Percocet [Oxycodone* Shortness of Breath Clindamycin Itching vaginal itching Deodorant Soap [Soa* Rash Sweet Pea Lactose Laundry Detergent [* Rash Purex, Gain Monistat 1 [Tiocona* Itching Vicodin [Hydrocodon* GI Upset VITALS: BP 118/72 Pulse 72 Temp 36.2 ?C (97.2 ?F) Resp 21 LMP 09/25/2019 SpO2 99% PE: Pleasant, in no acute distress. FOOT/ANKLE: right . Swelling mild dorsal mid to distal lateral foot. No deformity. Range of motion: inversion - non-painful, eversion - non-painful, anterior drawer- non-painful. unable to bear weight. Palpation: Medial malleolus non-painful, lateral malleolus non-painful, Dorsal proximal midfoot - non-painful, proximal 5th metatarsal non-painful, Mid to distal 4th and 5th metatarsals are tender, posterior calcaneus non-painful ASSESSMENT/PLAN: 1. Closed nondisplaced fracture of shaft of fifth metacarpal bone of right hand, initial encounter - ICD9: 815.03, ICD10: S62.356A (primary diagnosis) 2. Foot pain, right - ICD9: 729.5, ICD10: M79.671 - XR FOOT GENERAL 3V AP/LAT/OBL RIGHT - non-displaced transverse fractures mid shaft 5th metatasal Placed in walking boot and crutches. Partial weight bearing. Follow up with ortho or podiatry in 2 weeks. Keith Fagan MD [facility] 01-16-2023 History of Presen t illness Narrative Radiology Service Progress Note PATIENT NAME: Alka Ham DATE OF SERVICE: January 16, 2023 TIME: 12:34 PM PATIENT IDENTITY VERIFICATION COMPLETED USING TWO (2) IDENTIFIERS: Name and Date of confirmed by patient verbally. FALL SCREENING: Has the patient had 2 falls in the last year or 1 fall with injury or currently using an Ambulatory Assistive Device (Walker, Cane, Wheelchair, Crutches, etc.)? No PATIENT GENDER DATA: Female. status: : No status: NO. PATIENT RELEVANT IMPLANT DATA REVIEWED: Yes RADIOLOGY DEPARTMENT: General X-ray: Exam(s) Completed: Lower Extremity X-Ray(s): Foot, Right PERIPHERAL IV DATA: Not applicable SIGNED BY: RT Cristofer(R) January 16, 2023 12:34 PM documented in this encounter [facility] 01-16-2023 History of Presen t illness Narrative Patient presents with: Trauma: Right foot injury, slipped off curb x 1 day HPI: Right foot pain: Duration: inverted foot when she tripped off a curb yesterday. Location: lateral mid to distal right foot Character: sharp Radiation: No. Aggravating: standing, moving toes, touching Relieving: Pain relievers: Associated: swelling, bruising, Pertinent negatives: Denies numbness PAST MEDICAL HISTORY Diagnosis Date ADHD (attention deficit hyperactivity disorder) Back pain Taking motrin prn Bipolar I disorder, most recent episode (or current) unspecified Bipolar II disorder (HCC) 07/27/2013 RYAN II (cervical intraepithelial neoplasia II) 2010 Condyloma Heart murmur Does not take abx with dental work Papanicolaou smear of cervix with low grade squamous intraepithelial lesion (LGSIL) 12/14/07 colposcopy 07/2008 SIRISHA III (vulvar intraepithelial neoplasia III) 2010 MEDICATIONS: herbal drugs (MARJORAM ORAL) Take by mouth. acetaminophen (TYLENOL) 500 mg tablet Take 500-1,000 mg by mouth three times daily. albuterol HFA (PROVENTIL HFA, VENTOLIN HFA) 90 mcg/actuation inhaler Inhale 2 Puffs as instructed four times daily as needed. FOR WHEEZING AND SHORTNESS OF BREATH. ALLERGIES: ALLERGIES Allergen Reactions Percocet [Oxycodone* Shortness of Breath Clindamycin Itching vaginal itching Deodorant Soap [Soa* Rash Sweet Pea Lactose Laundry Detergent [* Rash Purex, Gain Monistat 1 [Tiocona* Itching Vicodin [Hydrocodon* GI Upset VITALS: BP 118/72 Pulse 72 Temp 36.2 C (97.2 F) Resp 21 LMP 09/25/2019 SpO2 99% PE: Pleasant, in no acute distress. FOOT/ANKLE: right . Swelling mild dorsal mid to distal lateral foot. No deformity. Range of motion: inversion - non-painful, eversion - non-painful, anterior drawer- non-painful. unable to bear weight. Palpation: Medial malleolus non-painful, lateral malleolus non-painful, Dorsal proximal midfoot - non-painful, proximal 5th metatarsal non-painful, Mid to distal 4th and 5th metatarsals are tender, posterior calcaneus non-painful ASSESSMENT/PLAN: 1. Closed nondisplaced fracture of shaft of fifth metacarpal bone of right hand, initial encounter - ICD9: 815.03, ICD10: S62.356A (primary diagnosis) 2. Foot pain, right - ICD9: 729.5, ICD10: M79.671 - XR FOOT GENERAL 3V AP/LAT/OBL RIGHT - non-displaced transverse fractures mid shaft 5th metatasal Placed in walking boot and crutches. Partial weight bearing. Follow up with ortho or podiatry in 2 weeks. Keith Fagan MD documented in this encounter [facility] 08-21-2022 Hospital Discharg e instructions Patient Education 08/21/2022 16:39:17 Chest Pain, Noncardiac Noncardiac Chest Pain Based on your visit today, the healthcare provider doesn t know what is causing your chest pain. In most cases, people who come to the emergency department with chest pain don t have a problem with their heart. Instead, the pain is caused by other conditions. It's important for the healthcare team to be sure you are not having a life threatening cause for chest pain such as a heart attack, blood clot in the lungs, collapsed lung, ruptured esophagus, or tearing of the aorta. Once these major causes have been ruled out, you may have further evaluation for non-heart causes of chest pain. These may be problems with the lungs, muscles, bones, digestive tract, nerves, or mental health. Lung problems Inflammation around the lungs (pleurisy) Collapsed lung (pneumothorax) Fluid around the lungs (pleural effusion) Lung cancer (a rare cause of chest pain) Muscle or bone problems Inflamed cartilage between the ribs (costochondritis) Fibromyalgia Rheumatoid arthritis Chest wall strain Digestive system problems Reflux Stomach ulcer Spasms of the esophagus Gall stones Gallbladder inflammation Mental health conditions Panic or anxiety attacks Emotional distress Your condition doesn t seem serious and your pain doesn t appear to be coming from your heart. But sometimes the signs of a serious problem take more time to appear. Watch for the warning signs listed below. Home care Follow these guidelines when caring for yourself at home: Rest today and avoid strenuous activity. Take any prescribed medicine as directed. Follow-up care Follow up with your healthcare provider, or as advised, if you don t start to feel better within 24 hours. When to seek medical advice Call your healthcare provider right away if any of these occur: A change in the type of pain. Call if it feels different, becomes more serious, lasts longer, or begins to spread into your shoulder, arm, neck, jaw, or back. Shortness of breath You feel more pain when you breathe Cough with dark-colored mucus or blood Weakness, dizziness, or fainting Fever of 100.4 F (38 C) or higher, or as directed by your healthcare provider Swelling, pain, or redness in one leg [phone] [employer] [address] [place] [address], [place] [address]. All rights reserved. This information is not intended as a substitute for professional medical care. Always follow your healthcare professional's instructions. Follow Up Care 08/21/2022 13:27:58 With:CIERA NOVAK Address: [address] [place] [address]- [phone] When:2-4 days [facility] 08-21-2022 Note Discharge Instructions Thank you for allowing [facility] to assist you with your healthcare needs. The following is important discharge information regarding your hospital visit. Diagnosis from Today's Visit Chest pain Chest pain What to Do Next Instructions from Your Care Team No qualifying data available. Post Acute Orders No qualifying data available. You Need to Schedule the Following Appointments Follow Up with CIERA NOVAK When Within 2-4 days Where: [address] [place] [address]- [phone] Allergies [facility] Medications Please ask your primary doctor or pharmacist before taking any other medication not listed, including over the counter drugs, herbal medications, vitamins and or supplements as they may interact with your home medications. What How Much When Why Instructions Last Dose Unchanged acetaminophen-hydrocodone ([place] 325- 5 mg oral tablet) 1 tab(s) by mouth Every 4 hours as needed for as needed for pain Tail bone pain Duration: 5 Days Unchanged docusate (Colace 100 mg oral capsule) 1 cap by mouth Two (2) times a day as needed for as needed for constipation Please take this list to your next doctor s visit. Bring all medications you take, including over the counter medications, herbals and other supplements with you to your doctor s visit. Patients and families are reminded to discard old lists and to update any records with all medication providers or retail pharmacies. Education Materials Noncardiac Chest Pain Based on your visit today, the healthcare provider doesn t know what is causing your chest pain. In most cases, people who come to the emergency department with chest pain don t have a problem with their heart. Instead, the pain is caused by other conditions. It's important for the healthcare team to be sure you are not having a life threatening cause for chest pain such as a heart attack, blood clot in the lungs, collapsed lung, ruptured esophagus, or tearing of the aorta. Once these major causes have been ruled out, you may have further evaluation for non-heart causes of chest pain. These may be problems with the lungs, muscles, bones, digestive tract, nerves, or mental health. Lung problems Inflammation around the lungs (pleurisy) Collapsed lung (pneumothorax) Fluid around the lungs (pleural effusion) Lung cancer (a rare cause of chest pain) Muscle or bone problems Inflamed cartilage between the ribs (costochondritis) Fibromyalgia Rheumatoid arthritis Chest wall strain Digestive system problems Reflux Stomach ulcer Spasms of the esophagus Gall stones Gallbladder inflammation Mental health conditions Panic or anxiety attacks Emotional distress Your condition doesn t seem serious and your pain doesn t appear to be coming from your heart. But sometimes the signs of a serious problem take more time to appear. Watch for the warning signs listed below. Home care Follow these guidelines when caring for yourself at home: Rest today and avoid strenuous activity. Take any prescribed medicine as directed. Follow-up care Follow up with your healthcare provider, or as advised, if you don t start to feel better within 24 hours. When to seek medical advice Call your healthcare provider right away if any of these occur: A change in the type of pain. Call if it feels different, becomes more serious, lasts longer, or begins to spread into your shoulder, arm, neck, jaw, or back. Shortness of breath You feel more pain when you breathe Cough with dark-colored mucus or blood Weakness, dizziness, or fainting Fever of 100.4 F (38 C) or higher, or as directed by your healthcare provider Swelling, pain, or redness in one leg [phone] [employer] [address] [place] [address]. All rights reserved. This information is not intended as a substitute for professional medical care. Always follow your healthcare professional's instructions. Additional Information VACCINATE! IT SAVES LIVES! Members of the community who have not yet received the COVID-19 vaccine and would like to receive it can visit one of [facility] vaccine clinics. There are many vaccine clinic locations within the [facility]. For locations and available times, please visit [email or web address]. It is important to note that some COVID mobile vaccine clinics are held outdoors and may be canceled in rainy or stormy conditions. To learn more about pediatric vaccinations (ages 5-11), we invite you to visit the [facility] webpage. [email or web address] To learn more about the COVID-19 vaccine, we invite you to visit the [facility] website for a list of frequently asked questions. [email or web address] [facility] Patient Portal Access Instructions: Stay connected with your healthcare team and access your personal medical information anytime with the [facility] Patient Portal. If you would like a full copy of your medical records please contact the [facility] Medical Records Department Thursday through Thursday between 8a.m. and 4:30p.m. Please follow the directions below to access the portal: 1.Access the email account you provided upon registration to the hospital.2.Look for an invitation email from [facility].3.Open the email and access the invitation link: Accept Invitation to [facility]4.Fill in the required hung to create your account. Sign into [email or web address] with your username and password that you created in the above steps to stay up to date. You can then view a summary of results, a summary of your visits, and the ability to download your summaries to your computer or send the information securely to a physician. Remember that your healthcare information is confidential, so carefully consider who you will allow to register on the [facility] Patient Portal for access to your information. You can also access the [facility] Patient Portal on the [employer] Simply click on Health Records under Health Data and then click on the [employer] logo. HOW TO SAFELY DISPOSE OF PRESCRIPTION MEDICATIONS Please use one of the following methods to safely dispose of your unused medications. 1.Use a drug disposal kit: the drug disposal pouch allows you to safely discard your old and unused drugs. Ask your nurse to give you one when you are discharged.2.Visit a local take-back location: Many local pharmacies and police departments have programs that collect old and unwanted prescription drugs. Call your local pharmacy or go to [email or web address] to find one close to you.3.Make use of household items: Use cat litter or old coffee grounds to dispose medications if other options are not available. Mix your drugs with these household products, seal them in an airtight container and throw it into the garbage. Call [facility]: [phone] to be sure your drugs can be disposed of in this way. Some medicines may require a different approach.4.Never flush your medications down the toilet. IF YOU HAVE BEEN PRESCRIBED AN OPIOIDS FOR PAIN If you have been prescribed an opioid (such as hydrocodone, oxycodone or morphine), it is critical to understand the possible side effects and risks of opioid pain medications. Even when taken as directed, opioids can have several side effects including: Tolerance, meaning you might need to take more of a medication for the same pain relief. Nausea, vomiting and/or constipation. Sleepiness, dizziness, dry mouth, confusion, depression or itching. Physical dependence, meaning you have withdrawal symptoms when a medication is stopped ? this can develop within a few days. KNOW YOUR RESPONSIBILITIES It is important to know exactly how much and how often to take the opioid pain medications you are prescribed. Never take opioids in higher amounts or more often than prescribed. Do not combine opioids with alcohol or other drugs that cause drowsiness, such as benzodiazepines, also known as benzos, including diazepam and alprazolam, muscle relaxants or sleep aids. Never sell or share prescription opioids. This is illegal. Store opioids in a secure place and out of reach of others (including children, family, friends and visitors). The last page(s) of this document has been signed and retained as a CHART COPY Signatures Patient Education Materials Chest Pain, Noncardiac Medication Leaflets My discharge plan and instructions have been reviewed and explained to me and IFATOUMATA SARAH A understand my current condition and have read and understand these discharge instructions. I have received a written copy of the plan/instructions. If I have questions, I am aware that I should contact my doctor. 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 HISTORY: ORDERING SYSTEM PROVIDED HISTORY: Reason for Exam: chest pain FINDINGS: Normal heart size. Lungs are clear without evidence of pneumothorax, pleural effusion, vascular congestion, or focal airspace consolidation. Endplate osteophytes are noted at multiple levels of the thoracic spine. IMPRESSION: 1. No evidence of acute cardiopulmonary process. Interpreted by: Khanh Hunt DO Preliminary Report By: Khanh Hunt DO Electronically signed By Khanh Hunt DO Dictated Date: 08/21/2022 2:23:06 PM Prelim Date: 08/21/2022 2:23:53 PM Sign Date: 08/21/2022 2:23:53 PM Ordering Provider: BREANNE RAMOS [facility] 08-21-2022 Note ORIGINAL EXAMINATION: ONE XRAY VIEW OF THE CHEST 08/21/2022 1:59 pm COMPARISON: None. HISTORY: ORDERING SYSTEM PROVIDED HISTORY: Reason for Exam: chest pain FINDINGS: Normal heart size. Lungs are clear without evidence of pneumothorax, pleural effusion, vascular congestion, or focal airspace consolidation. Endplate osteophytes are noted at multiple levels of the thoracic spine. IMPRESSION: 1. No evidence of acute cardiopulmonary process. Interpreted by: Khanh Hunt DO Preliminary Report By: Khanh Hunt DO Electronically signed By Khanh Hunt DO Dictated Date: 08/21/2022 2:23:06 PM Prelim Date: 08/21/2022 2:23:53 PM Sign Date: 08/21/2022 2:23:53 PM Ordering Provider: BREANNE RAMOS [facility] 08-05-2010 History of Past i llness Narrative Problem Noted Date Resolved Date High-risk 08/05/2010 12/06/2010 Rhesus isoimmunization affec ting management of mother, antepartum condition 08/05/2010 12/06/2010 Bipolar disorder, unspecified 01/21/2008 Supervision of other normal 01/12/2008 06/28/2008 documented as of this encounter (statuses as of 01/16/2023) [facility] History of Past illness Narrative* Problem Noted Date Resolved Date High-risk 08/05/2010 12/06/2010 Rhesus isoimmunization affec ting management of mother, antepartum condition 08/05/2010 12/06/2010 Bipolar disorder, unspecified 01/21/2008 Supervision of other normal 01/12/2008 06/28/2008 documented as of this encounter (statuses as of 01/20/2023) [facility] History of Past illness Narrative* Problem Noted Date Resolved Date High-risk 08/05/2010 12/06/2010 Rhesus isoimmunization affec ting management of mother, antepartum condition 08/05/2010 12/06/2010 Bipolar disorder, unspecified 01/21/2008 Supervision of other normal 01/12/2008 06/28/2008 documented as of this encounter (statuses as of 01/30/2023) [facility] History of Past illness Narrative* Problem Noted Date Diagnosed Date Resolved Date High-risk 08/05/2010 12/07/19 11 Rhesus isoimmunization affec ting management of mother, antepartum condition 08/05/2010 12/07/19 11 Bipolar disorder, unspecified 01/21/2008 10/28/2010 Supervision of other normal 01/12/2008 06/28/2008 documented as of this encounter (statuses as of 07/26/2023) [facility] No data available for this section [facility] Evaluation note* Diagnosis Closed nondisplaced fracture of shaft of fifth metacarpal bone of right hand, initial encounter- Primary Foot pain, right Pain in limb documented [facility] Diagnosis Pain in right foot- Primary Pain in limb [facility] Diagnosis Pain in right foot Pain in limb [facility] Diagnosis Foot pain, right Pain in limb documented in this encounter [facility] for referral (narrative)* Diagnostic Procedure Only (Routine) - Pending Review Specialty Diagnoses / Procedures Referred By Contac t Referred To Contact XR IMAGING Diagnoses Pain in right foot Procedures XR FOOT GENERAL 3V AP/LAT/OBL RIGHT RADEX FOOT COMPLETE MINIMUM 3 VIEWS Brittney Mejía [address] [place] [address] Xr Imaging Referral ID Status Reason Start Date Expiration Date Visits Requested Visits Authorized [id number] Pending Review Auto-Generat ed Referral 01/30/2023 02/29/2024 1 1 [facility] for referral (narrative)* Diagnostic Procedure Only (Routine) - Closed Specialty Diagnoses / Procedures Referred By Contac t Referred To Contact XR IMAGING Diagnoses Pain in right foot Procedures XR FOOT GENERAL 3V AP/LAT/OBL RIGHT RADEX FOOT COMPLETE MINIMUM 3 VIEWS Brittney Mejía [address] [place] [address] [place] [address] Referral ID Status Reason Start Date Expiration Date V isits Requested Visits Authorized [id number] Closed Auto-Generate d Referral 01/30/2023 02/29/2024 1 1 [facility] for referral (narrative)* Diagnostic Procedure Only (Routine) - Closed Specialty Diagnoses / Procedures Referred By Contac t Referred To Contact XR IMAGING Diagnoses Foot pain, right Procedures XR FOOT GENERAL 3V AP/LAT/OBL RIGHT RADEX FOOT COMPLETE MINIMUM 3 VIEWS Keith Fagan MD [address] [place] [address] [place] [address] Referral ID Status Reason Start Date Expiration Date V isits Requested Visits Authorized [id number] Closed Auto-Generate d Referral 01/16/2023 02/15/2024 1 1 [facility] for visit Narrative* Diagnostic Procedure Only (Routine) - Closed Specialty Diagnoses / Procedures Referred By Contac t Referred To Contact XR IMAGING Diagnoses Pain in right foot Procedures XR FOOT GENERAL 3V AP/LAT/OBL RIGHT RADEX FOOT COMPLETE MINIMUM 3 VIEWS Brittney Mejía [address] [place] [address] [place] [address] Referral ID Status Reason Start Date Expiration Date V isits Requested Visits Authorized [id number] Closed Auto-Generate d Referral 01/30/2023 02/29/2024 1 1 [facility] for visit Narrative* Diagnostic Procedure Only (Routine) - Closed Specialty Diagnoses / Procedures Referred By Contac t Referred To Contact XR IMAGING Diagnoses Foot pain, right Procedures XR FOOT GENERAL 3V AP/LAT/OBL RIGHT RADEX FOOT COMPLETE MINIMUM 3 VIEWS Keith Fagan MD [address] [place] [address] [place] [address] Referral ID Status Reason Start Date Expiration Date V isits Requested Visits Authorized [id number] Closed Auto-Generate d Referral 01/16/2023 02/15/2024 [address] [facility] Summary Purpose Family History No Family History Records FoundNo Family History Records FoundNo Family History Records FoundNo Family History Records FoundNo Family History Records Found Advance Directives No Advanced Directives Records FoundNo Advanced Directives Records FoundNo Advanced Directives Records FoundNo Advanced Directives Records FoundNo Advanced Directives Records Found Reason for Referral Specialty Diagnoses / Procedures Referred By Contac t Referred To Contact Orthopedics Diagnoses Closed nondisplaced fracture of shaft of fifth metacarpal bone of right hand, initial encounter Procedures CONSULT TO ORTHOPAEDICS OFFICE/OUTPATIENT [facility] 60-74 MINUTES Keith Fagan MD [address] [place] [address] Referral ID Status Reason Start Date Expiration Date Visits Requested Visits Authorized [id number] Authorized PCP Requested Referral 01/16/2023 01/16/2024 1 1 Specialty Diagnoses / Procedures Referred By Contac t Referred To Contact XR IMAGING Diagnoses Foot pain, right Procedures XR FOOT GENERAL 3V AP/LAT/OBL RIGHT RADEX FOOT COMPLETE MINIMUM 3 VIEWS Keith Fagan MD [address] [place] [address] Xr Imaging Referral ID Status Reason Start Date Expiration Date V isits Requested Visits Authorized [id number] Closed Auto-Generate d Referral 01/16/2023 02/15/2024 1 1 Additional Source Comments INFORMATION SOURCE (unrecogn ized section and content) DATE CREATED AUTHOR 03/11/2018 [facility] DATE CREATED AUTHOR AUTHOR'S ORGANIZ ATION 03/06/2020 [facility] DATE CREATED AUTHOR AUTHOR'S ORGANIZ ATION 10/01/2023 [facility] ([place]) DATE CREATED AUTHOR AUTHOR'S ORGANIZ ATION 10/02/2023 [facility] DATE CREATED AUTHOR AUTHOR'S ORGANIZ ATION 10/29/2023 [facility] Care Team (unrecognized sect ion and content) Care Team Personnel Name: CIERA NOVAK WOOL 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 Position: AO Advanced Practice Nurse Member Role: Primary Care Physician Address: Address: [address] [place] [id number]- Name: BREANNE RAMOS MD Position: ED Physician Member Role: Attending Physician Address: Address: [address] [place] [id number]- Name: Pat Barnhart RN Position: ED RN Member Role: ED RN Care Team Related Persons Name: SHANNON STRONG Source Comments (unrecognize d section and content) In the event this informatio n is protected by the Federal Confidentiality of Alcohol and Drug Abuse Patient Records regulations: The Federal rules restrict any use of the information to criminally investigate or prosecute any alcohol or drug abuse patient.[facility] the event this information is protected by the Federal Confidentiality of Alcohol and Drug Abuse Patient Records regulations: The Federal rules restrict any use of the information to criminally investigate or prosecute any alcohol or drug abuse patient.[facility] the event this information is protected by the Federal Confidentiality of Alcohol and Drug Abuse Patient Records regulations: The Federal rules restrict any use of the information to criminally investigate or prosecute any alcohol or drug abuse patient.[facility] the event this information is protected by the Federal Confidentiality of Alcohol and Drug Abuse Patient Records regulations: The Federal rules restrict any use of the information to criminally investigate or prosecute any alcohol or drug abuse patient.[facility] the event this information is protected by the Federal Confidentiality of Alcohol and Drug Abuse Patient Records regulations: The Federal rules restrict any use of the information to criminally investigate or prosecute any alcohol or drug abuse patient.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 This clinical summary was aggregated from multiple sources. Caution should be exercised in using it in the provision of clinical care. This summary normalizes information from multiple sources, and as a consequence, information in this document may materially change the coding, format and clinical context of patient data. In addition, data may be omitted in some cases. CLINICAL DECISIONS SHOULD BE BASED ON THE PRIMARY CLINICAL RECORDS. [employer] [facility] provides no warranty or guarantee of the accuracy or completeness of information in this document.
[2024-07-20 13:16] LABS: Absolute Neutrophil Count 4.1 X10^3/uL (2.0-7.7); Basophil# 0.07 X10^3/uL; Basophil% 0.9 % (0-1); Eosinophil# 0.27 X10^3/uL; Eosinophils% 3.5 % (0-5); Hematocrit 44.2 % (37-47); Hemoglobin 14.7 g/dL (12.0-15.0); Lymphocyte % 34.1 % (19-41); Mean Corp Hgb Conc 33.3 g/dL (32-36); Mean Corpuscular Hgb 31.3 pg (27.0-32.0); Mean Platelet Vol. 10.4 fl (6.2-12.0); Monocyte# 0.52 X10^3/uL; Monocyte% 6.8 % (0-10); NRBC Flagged by Analyzer 0 % (0-5); Neutrophil # 4.14 X10^3/uL (2.7-7.7); Neutrophil % 54.4 % (47-70); Platelet Count 246 K/mm3 (150-450); RBC Distribution Width CV 11.9 % (11.6-14.6); RBC Distribution Width SD 41.2 fl (35.1-43.9); White Blood Count 7.6 K/mm3 (4.4-11.0)
[2024-07-20 13:35] LABS: ALB/GLOB Ratio 1.1 RATIO (0.9-2.4); AST(SGOT) 11 U/L (15-37); Alanine Aminotransfer ALT/SGPT 27 U/L (13-56); Albumin, Serum 3.6 g/dL (3.2-5.0); Alkaline Phosphatase 50 U/L (45-117); Anion Gap 6 (5-15); BUN 12 mg/dL (7-18); Calcium,Total 9.1 mg/dL (8.5-10.1); Chloride 111 mmol/L (98-107); EST Glomerular Filtration Rate 86 mL/min (>60); Est Glom Filt Rate - Afr Amer 104 mL/min (>60); Globulin 3.2 g/dL (2.2-4.2); Glucose 121 mg/dL (74-106); Protein, Total 6.8 g/dL (6.4-8.2); Sodium Level 141 mmol/L (136-145)
[2024-07-20 14:22] LABS: Vitamin D,25 Hydroxy 15.4 ng/mL
== END | disposition home or self-care (01) ==
LOC: VSLAB 12:16
PROVIDERS: PCP Nurse Practitioner Family; Visit Provider Nurse Practitioner Family
DX: F31.11 Bipolar disorder, current episode manic without psychotic features, mild (principal); E55.9 Vitamin D deficiency, unspecified
CPT/HCPCS: 36415; 80053; 82306; 84443; 85025

== ENCOUNTER → 2024-11-23 | Outpatient (CLI) | payer MEDICAID, SELFPAY | END | disposition home or self-care (01) | LOC: VSLAB 13:57 | PROVIDERS: PCP Nurse Practitioner Family; Visit Provider Nurse Practitioner Family | DX: N89.8 Other specified noninflammatory disorders of vagina (principal) ==

== ENCOUNTER → 2024-11-28 | Outpatient (CLI) | payer MEDICAID, SELFPAY ==
[2024-12-01 05:07] LABS: Chlamydia By Nucleic Acid AMP Negative (Negative); Gonococcus By Nucleic Acid AMP Negative (Negative)
== END | disposition home or self-care (01) ==
LOC: LABSPEC 16:24
PROVIDERS: PCP Nurse Practitioner Family; Referring Provider Obstetrics & Gynecology; Visit Provider Obstetrics & Gynecology
DX: Z20.2 Contact with and (suspected) exposure to infections with a predominantly sexual mode of transmission (principal); Z11.3 Encounter for screening for infections with a predominantly sexual mode of transmission; N76.0 Acute vaginitis
CPT/HCPCS: 87070; 87205; 87491; 87591

== ENCOUNTER → 2024-12-20 | Outpatient (CLI) | payer MEDICAID, SELFPAY ==
[2024-12-20 17:14] LABS: Absolute Lymphocyte Count 2.38 X10^3/uL (0.83-4.51); Absolute Neutrophil Count 5.5 X10^3/uL (2.0-7.7); Basophil# 0.07 X10^3/uL; Basophil% 0.8 % (0-1); Eosinophil# 0.22 X10^3/uL; Eosinophils% 2.5 % (0-5); Hematocrit 43.8 % (37-47); Hemoglobin 15.1 g/dL (12.0-15.0); Lymphocyte # 2.38 X10^3/ul (0.83-4.51); Lymphocyte % 27.5 % (19-41); Mean Corp Hgb Conc 34.5 g/dL (32-36); Mean Corpuscular Hgb 32.1 pg (27.0-32.0); Mean Platelet Vol. 10.4 fl (6.2-12.0); Monocyte# 0.45 X10^3/uL; Monocyte% 5.2 % (0-10); NRBC Flagged by Analyzer 0 % (0-5); Neutrophil % 63.8 % (47-70); Platelet Count 239 K/mm3 (150-450); RBC Distribution Width CV 12.2 % (11.6-14.6); RBC Distribution Width SD 42.2 fl (35.1-43.9); Red Blood Count 4.71 M/mm3 (4.2-5.4); White Blood Count 8.6 K/mm3 (4.4-11.0)
[2024-12-20 18:01] LABS: HIV Nonreactive (Nonreactive); Syphilis Antibodies Nonreactive (Nonreactive)
[2024-12-20 18:11] LABS: Hepatitis B Surface Antibody REAC
[2024-12-20 18:51] LABS: ALB/GLOB Ratio 1.6 RATIO (0.9-2.4); AST(SGOT) 16 U/L (<=31); Alanine Aminotransfer ALT/SGPT 13 U/L (<=34); Albumin, Serum 4.2 g/dL (3.5-5.0); Alkaline Phosphatase 58 U/L (35-104); Anion Gap 12 (5-15); BUN 13 mg/dL (4-19); BUN/Creat Ratio 20.5 RATIO (10-20); Calcium,Total 9.3 mg/dL (7.6-11.0); Carbon Dioxide 19.8 mmol/L (21.0-32.0); Chloride 106 mmol/L (98-108); Creatinine, Serum 0.63 mg/dL (0.70-1.20); EST Glomerular Filtration Rate 116 (>60); Globulin 2.6 g/dL (2.2-4.2); Glucose 95 mg/dL (70-99); Potassium 4.4 mmol/L (3.3-5.1); Protein, Total 6.8 g/dL (5.9-8.4); Sodium Level 138 mmol/L (133-145); Thyroid Stim Hormone (TSH) 0.917 uIU/mL (0.300-4.200); Total Bilirubin 0.43 mg/dL (0.00-1.30); Vitamin D,25 Hydroxy 21.2 ng/mL (30-100)
[2024-12-22 20:08] LABS: HCV Quant. RNA PCR HCV Not Detected IU/mL (.)
== END | disposition home or self-care (01) ==
LOC: VSLAB 15:11
PROVIDERS: Obstetrics & Gynecology; PCP Nurse Practitioner Family; Visit Provider Nurse Practitioner Family
DX: H81.10 Benign paroxysmal vertigo, unspecified ear (principal); E55.9 Vitamin D deficiency, unspecified; R73.9 Hyperglycemia, unspecified; Z20.2 Contact with and (suspected) exposure to infections with a predominantly sexual mode of transmission; Z11.3 Encounter for screening for infections with a predominantly sexual mode of transmission
CPT/HCPCS: 36415; 80053; 82306; 83036; 84443; 85025; 86695; 86696; 86703; 86706; 86780; 87522

== ENCOUNTER → 2025-01-31 | Outpatient (CLI) | payer MEDICAID, SELFPAY | END | disposition home or self-care (01) | LOC: LABSPEC 15:31 | PROVIDERS: PCP Nurse Practitioner Family; Visit Provider Obstetrics & Gynecology | DX: A60.00 Herpesviral infection of urogenital system, unspecified (principal) | CPT/HCPCS: 87070; 87205 ==

== ENCOUNTER → 2025-05-25 | Outpatient (CLI) | payer MEDICAID, SELFPAY ==
[2025-05-25 12:28] LABS: Hematocrit 44.3 % (37-47); Hemoglobin 15.5 g/dL (12.0-15.0); Immature Granulocytes Count 0.030 X10^3/uL (0.0-0.0); Mean Corp Hgb Conc 35.0 g/dL (32-36); Mean Corpuscular Volume 92.7 fL (81-99); Mean Platelet Vol. 10.3 fl (6.2-12.0); NRBC Flagged by Analyzer 0 % (0-5); Platelet Count 222 K/mm3 (150-450); RBC Distribution Width CV 11.9 % (11.6-14.6); RBC Distribution Width SD 40.4 fl (35.1-43.9); Red Blood Count 4.78 M/mm3 (4.2-5.4); White Blood Count 7.6 K/mm3 (4.4-11.0)
[2025-05-25 13:20] LABS: HIV Nonreactive (Nonreactive)
== END | disposition home or self-care (01) ==
PROVIDERS: PCP Nurse Practitioner Family; Referring Provider Obstetrics & Gynecology; Visit Provider Obstetrics & Gynecology
DX: R63.4 Abnormal weight loss (principal)
CPT/HCPCS: 36415; 83036; 84443; 85025; 86703; 87086; 87088; 87186